=== PATIENT | male | born 2000 | race Caucasian/White ===

== ENCOUNTER 2020-08-31 11:38 | Inpatient (IN) ==
[2020-08-31 12:40] LABS: Appearance Urine Clear (Clear); Bilirubin Urine Negative (Negative); Blood Urine Negative (Negative); Color Urine Yellow; Glucose Urine UA Negative (Negative); Ketones Urine 1+ (Negative); Leukocyte Esterase Urine Negative (Negative); Nitrite Urine Negative (Negative); Protein Urine Negative (Negative); Specific Gravity Urine 1.026 (1.000-1.030); Urobilinogen Urine Negative (Negative); pH Urine 5.5 (4.5-7.5)
[2020-08-31 12:45] LABS: Basophils # (auto) 0.01 K/uL (0-0.2); Basophils % (auto) 0.2 %; Eosinophils # (auto) 0.04 K/uL (0-0.5); Eosinophils % (auto) 0.6 %; Hemoglobin 15.9 g/dL (14.0-18.0); Immature Granulocytes # (auto) 0.03 K/uL (0.00-0.02); Immature Granulocytes % (auto) 0.5 %; Lymphocytes # (auto) 1.62 K/uL (1.2-3.4); Mean Corpuscular Hemoglobin 30.1 pg (25-34); Mean Corpuscular Hgb Conc 34.6 g/dL (32-36); Mean Corpuscular Volume 87.1 fL (80-100); Mean Platelet Volume 10.9 fL (7.4-10.4); Monocytes # (auto) 0.33 K/uL (0.11-0.59); Monocytes % (auto) 5.1 %; Neutrophils # (auto) 4.46 K/uL (1.4-6.5); Neutrophils % (auto) 68.6 %; Platelet Count 275 K/uL (130-400); RDW Coefficient of Variation 13.2 % (11.5-14.5); RDW Standard Deviation 42.3 fL (36.4-46.3); Red Blood Count 5.28 M/uL (4.7-6.1); White Blood Count 6.49 K/uL (4.8-10.8)
--- NOTE | 2020-08-31 12:51 | Emergency Department Note ---
Impression & Plan Alcohol abuse, Marijuana abuse, Mushrooms causing toxic effect, Suicidal ideation, Mood disorder ED Provider Note NAME: AIMEE MARTINI AGE: 20 SEX: M : 2000 ARRIVES VIA: Ambulance INFORMANT: Patient ED PROVIDER(S): Deniz Walters DO CHIEF COMPLAINT: Suicidal thoughts HPI: Patient is a 20-year-old male who admits to suicidal ideations with a plan to shoot himself with a gun. He has had suicidal thoughts since the age of 7. He notes that recently they have been getting worse. Last night he was drinking large amount of alcohol and believes he was had 2 riki 45s and some whiskey and took a bunch of mushrooms as well as smoking some marijuana. Last time he took anything was some around 2-4 AM in the morning. He denies any headache or change in vision. No chest pain or shortness of breath. No nausea, vomiting or diarrhea. No dysuria, urgency or frequency. No other exacerbating or remitting factors. He notes he took all his medications because he is just easier and he does not want to live. ROS: See above HPI for pertinent positives & negatives. A total of 10 systems reviewed and were otherwise negative. PAST MEDICAL HISTORY:See Below PAST SURGICAL HISTORY:See Below FAMILY HISTORY:See Below SOCIAL HISTORY:See Below HOME MEDICATIONS:See Below ALLERGIES:See Below VITALS:See Below PHYSICAL EXAMINATION: GENERAL: Sitting up in bed, alert, well appearing, well nourished, no distress, non-toxic EYE EXAM: normal conjunctiva. OROPHARYNX: no exudate, no erythema, lips, buccal mucosa, and tongue normal and mucous membranes are moist NECK: supple, no nuchal rigidity, no adenopathy, non-tender LUNGS: Clear to auscultation. Normal chest wall mechanics HEART: no murmurs, S1 normal and S2 normal ABDOMEN: abdomen soft, non-tender, normo-active bowel sounds, no masses, no rebound or guarding. BACK: Back is symmetrical on inspection and there is no deformity, no midline tenderness, no CVA tenderness. UPPER EXTREMITIES: upper extremities are grossly normal. LOWER EXTREMITIES: No pitting edema. NEURO EXAM: Normal sensorium, cranial nerves II-XII grossly intact, normal speech, no gross weakness of arms, no gross weakness of legs. PSYCH: Admits to suicidal ideations with a plan to shoot himself MEDICAL DECISION MAKING: Patient is a 21-year-old male who drinks alcohol regularly, uses marijuana and used mushrooms last night into this morning as well. He presents the ER today as he has thoughts of wanting to kill himself with a gun. He has a clear plan. He also feels very weird from them the drugs and alcohol they took last night. He has some twitching intermittently of the upper and lower extremities as well. Labs show no significant leukocytosis or anemia. No thrombocytopenia. BMP with a slightly elevated chloride. LFTs bilirubin and TSH were unremarkable. UA with ketones. Acetaminophen and salicylates were negative. Tox was positive for marijuana. Alcohol was 103. Covid was negative. Discussed with [facility] poison control. They recommended observation for 24 hours secondary to the mushroom ingestion and the possible toxic effects. CT head was negative. EKG was nondiagnostic. Patient was updated bedside discussed with the hospitalist for further evaluation. Triage Nursing notes reviewed. Limited review of prior medical records performed Vital Signs: reviewed and remarkable for no significant abnormalities Differential diagnosis: Mood disorder, infection, hypoglycemia, electrolyte abnormalities, cardiac sour sandra, intracerebral event, toxicologic, trauma, neurologic, as well as other pathologies. ER treatment provided: See below Diagnostics interpreted by me: ECG: Sinus rhythm rate 87 Normal axis No PVCs QTC 421 Laboratory studies: As stated above and show below. Imaging studies: CT head shows no acute pathology Consultation(s): Discussed with Dr. Olea for further evaluation Procedures: none Critical Care: None Past Med/Surg History Medical History (Updated 08/31/20 @ 17:16 by Deniz Walters DO) Alcohol abuse Former tobacco use Marijuana abuse Mood disorder Mushrooms causing toxic effect Surgical History (Updated 08/31/20 @ 16:34 by Rohan Olea) H/O wisdom tooth extraction Family History (Updated 08/31/20 @ 16:35 by Rohan Olea) Grandfather (Paternal) Diabetes Social History (Updated 08/31/20 @ 16:36 by Rohan Olea) Smoking Status: Former smoker Tobacco Type: Cigarettes and E-cigarettes / Vaping Hx Alcohol Use: Yes Alcohol type: beer Alcohol Intake Frequency: 4 or More x per/Week Alcohol Intake Frequency Comment: 80oz/day Hx Substance Use: Yes Prescribed Medications: Marijuana Non-Prescribed Medications: Amphetamines, Hallucinogens and Marijuana Last Used Substance: Just Prior to Arrival marital status: Single Current Living Situation: Other Current Living Situation Comment: 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 Feels Safe at Home: Yes Do you think of yourself as: straight/heterosexual Sexual Activity: has been sexually active within the last 12 months Home Meds Home Medications Medication Instructions Recorded Confirmed No Known Home Medications 08/31/20 08/31/20 Results & Data (ED) Vital Signs Vital Signs - 24 hr 08/31/20 11:41 08/31/20 13:30 Temperature 36.7 C Temperature Source Oral Pulse Rate 95 H Pulse Rate [Finger] 85 Pulse Rhythm Regular Pulse Strength Normal Respiratory Rate 20 18 Respiratory Effort / Characteristics Non-Labored Respiratory Depth Normal Respiratory Pattern Regular Blood Pressure 129/87 Blood Pressure [Left Arm] 126/79 Blood Pressure Mean 101 Blood Pressure Mean [Left Arm] 94 Blood Pressure Position Sitting Pulse Oximetry 98 99 Oxygen Delivery Method Room Air Room Air Sepsis Recent Fever Within 48 Hours No Sepsis New/Unexplained Change in Mental Status No Sepsis Action Taken by Nursing No Action Required Laboratory Data Result diagrams: 08/31/20 12:31 08/31/20 12:31 Lab Results 08/31/20 08/31/20 08/31/20 Range/Units 12:30 12:30 12:31 WBC 6.49 (4.8-10.8) K/uL RBC 5.28 (4.7-6.1) M/uL Hgb 15.9 (14.0-18.0) g/dL Hct 46.0 (42-52) % MCV 87.1 (80-100) fL MCH 30.1 (25-34) pg MCHC 34.6 (32-36) g/dL RDW Std Deviation 42.3 (36.4-46.3) fL RDW Coeff of Haydee 13.2 (11.5-14.5) % Plt Count 275 (130-400) K/uL MPV 10.9 H (7.4-10.4) fL Immature Gran % (Auto) 0.5 % Neut % (Auto) 68.6 % Lymph % (Auto) 25.0 % Graves % (Auto) 5.1 % Eos % (Auto) 0.6 % Baso % (Auto) 0.2 % Neut # (Auto) 4.46 (1.4-6.5) K/uL Lymph # (Auto) 1.62 (1.2-3.4) K/uL Graves # (Auto) 0.33 (0.11-0.59) K/uL Eos # (Auto) 0.04 (0-0.5) K/uL Baso # (Auto) 0.01 (0-0.2) K/uL Immature Gran # (Auto) 0.03 H (0.00-0.02) K/uL Sodium (136-145) mmol/L Potassium (3.5-5.1) mmol/L Chloride (98-107) mmol/L Carbon Dioxide (21-32) mmol/L Anion Gap (3-11) BUN (7-18) mg/dl Creatinine (0.6-1.4) mg/dl Est Cr Clr Drug Dosing ml/min Est GFR ( Amer) Est GFR (Non-Af Amer) BUN/Creatinine Ratio (10-20) Glucose (70-99) mg/dl Calcium (8.5-10.1) mg/dl Total Bilirubin (0.2-1) mg/dl AST (15-37) U/L ALT (12-78) U/L Alkaline Phosphatase (45-117) U/L Total Protein (6.4-8.2) gm/dl Albumin (3.4-5.0) gm/dl Globulin (2.5-4.0) gm/dl Albumin/Globulin Ratio (0.9-2) TSH (0.300-4.500) uIu/ml Urine Color Yellow Urine Appearance Clear (Clear) Urine pH 5.5 (4.5-7.5) Ur Specific [place] 1.026 (1.000-1.030) Urine Protein Negative (Negative) Urine Glucose (UA) Negative (Negative) Urine Ketones 1+ H (Negative) Urine Blood Negative (Negative) Urine Nitrite Negative (Negative) Urine Bilirubin Negative (Negative) Urine Urobilinogen Negative (Negative) Ur Leukocyte Esterase Negative (Negative) Salicylates (2.8-20) mg/dl Urine Opiates Screen Neg (Neg) Ur Methadone, Qual Neg (Neg) Acetaminophen (10-30) ug/ml Urine Barbiturates Neg (Neg) Ur Phencyclidine (PCP) Neg (Neg) U Amphetamin/Meth Scrn Neg (Neg) MDMA (Ecstasy) Screen Neg (Neg) U Benzodiazepines Scrn Neg (Neg) Ur Cocaine Metabolite Neg (Neg) U Marijuana (THC) Screen Pos H (Neg) Ethyl Alcohol mg/dL (0-3) mg/dl COVID-19 Eval Order SARS-CoV-2, RNA, NAAT (NEGATIVE) 08/31/20 08/31/20 08/31/20 Range/Units 12:31 12:31 12:31 WBC (4.8-10.8) K/uL RBC (4.7-6.1) M/uL Hgb (14.0-18.0) g/dL Hct (42-52) % MCV (80-100) fL MCH (25-34) pg MCHC (32-36) g/dL RDW Std Deviation (36.4-46.3) fL RDW Coeff of Haydee (11.5-14.5) % Plt Count (130-400) K/uL MPV (7.4-10.4) fL Immature Gran % (Auto) % Neut % (Auto) % Lymph % (Auto) % Graves % (Auto) % Eos % (Auto) % Baso % (Auto) % Neut # (Auto) (1.4-6.5) K/uL Lymph # (Auto) (1.2-3.4) K/uL Graves # (Auto) (0.11-0.59) K/uL Eos # (Auto) (0-0.5) K/uL Baso # (Auto) (0-0.2) K/uL Immature Gran # (Auto) (0.00-0.02) K/uL Sodium 140 (136-145) mmol/L Potassium 3.7 (3.5-5.1) mmol/L Chloride 111 H (98-107) mmol/L Carbon Dioxide 21 (21-32) mmol/L Anion Gap 8.0 (3-11) BUN 14 (7-18) mg/dl Creatinine 1.02 (0.6-1.4) mg/dl Est Cr Clr Drug Dosing 95.8 ml/min Est GFR ( Amer) 121.2 Est GFR (Non-Af Amer) 104.6 BUN/Creatinine Ratio 13.6 (10-20) Glucose 100 H (70-99) mg/dl Calcium 9.1 (8.5-10.1) mg/dl Total Bilirubin 0.3 (0.2-1) mg/dl AST 34 (15-37) U/L ALT 47 (12-78) U/L Alkaline Phosphatase 82 (45-117) U/L Total Protein 9.2 H (6.4-8.2) gm/dl Albumin 4.7 (3.4-5.0) gm/dl Globulin 4.5 H (2.5-4.0) gm/dl Albumin/Globulin Ratio 1.0 (0.9-2) TSH 0.974 (0.300-4.500) uIu/ml Urine Color Urine Appearance (Clear) Urine pH (4.5-7.5) Ur Specific [place] (1.000-1.030) Urine Protein (Negative) Urine Glucose (UA) (Negative) Urine Ketones (Negative) Urine Blood (Negative) Urine Nitrite (Negative) Urine Bilirubin (Negative) Urine Urobilinogen (Negative) Ur Leukocyte Esterase (Negative) Salicylates < 1.7 L (2.8-20) mg/dl Urine Opiates Screen (Neg) Ur Methadone, Qual (Neg) Acetaminophen < 2 L (10-30) ug/ml Urine Barbiturates (Neg) Ur Phencyclidine (PCP) (Neg) U Amphetamin/Meth Scrn (Neg) MDMA (Ecstasy) Screen (Neg) U Benzodiazepines Scrn (Neg) Ur Cocaine Metabolite (Neg) U Marijuana (THC) Screen (Neg) Ethyl Alcohol mg/dL 103.0 H (0-3) mg/dl COVID-19 Eval Order SARS-CoV-2, RNA, NAAT (NEGATIVE) 08/31/20 08/31/20 Range/Units 15:17 15:17 WBC (4.8-10.8) K/uL RBC (4.7-6.1) M/uL Hgb (14.0-18.0) g/dL Hct (42-52) % MCV (80-100) fL MCH (25-34) pg MCHC (32-36) g/dL RDW Std Deviation (36.4-46.3) fL RDW Coeff of Haydee (11.5-14.5) % Plt Count (130-400) K/uL MPV (7.4-10.4) fL Immature Gran % (Auto) % Neut % (Auto) % Lymph % (Auto) % Graves % (Auto) % Eos % (Auto) % Baso % (Auto) % Neut # (Auto) (1.4-6.5) K/uL Lymph # (Auto) (1.2-3.4) K/uL Graves # (Auto) (0.11-0.59) K/uL Eos # (Auto) (0-0.5) K/uL Baso # (Auto) (0-0.2) K/uL Immature Gran # (Auto) (0.00-0.02) K/uL Sodium (136-145) mmol/L Potassium (3.5-5.1) mmol/L Chloride (98-107) mmol/L Carbon Dioxide (21-32) mmol/L Anion Gap (3-11) BUN (7-18) mg/dl Creatinine (0.6-1.4) mg/dl Est Cr Clr Drug Dosing ml/min Est GFR ( Amer) Est GFR (Non-Af Amer) BUN/Creatinine Ratio (10-20) Glucose (70-99) mg/dl Calcium (8.5-10.1) mg/dl Total Bilirubin (0.2-1) mg/dl AST (15-37) U/L ALT (12-78) U/L Alkaline Phosphatase (45-117) U/L Total Protein (6.4-8.2) gm/dl Albumin (3.4-5.0) gm/dl Globulin (2.5-4.0) gm/dl Albumin/Globulin Ratio (0.9-2) TSH (0.300-4.500) uIu/ml Urine Color Urine Appearance (Clear) Urine pH (4.5-7.5) Ur Specific [place] (1.000-1.030) Urine Protein (Negative) Urine Glucose (UA) (Negative) Urine Ketones (Negative) Urine Blood (Negative) Urine Nitrite (Negative) Urine Bilirubin (Negative) Urine Urobilinogen (Negative) Ur Leukocyte Esterase (Negative) Salicylates (2.8-20) mg/dl Urine Opiates Screen (Neg) Ur Methadone, Qual (Neg) Acetaminophen (10-30) ug/ml Urine Barbiturates (Neg) Ur Phencyclidine (PCP) (Neg) U Amphetamin/Meth Scrn (Neg) MDMA (Ecstasy) Screen (Neg) U Benzodiazepines Scrn (Neg) Ur Cocaine Metabolite (Neg) U Marijuana (THC) Screen (Neg) Ethyl Alcohol mg/dL (0-3) mg/dl COVID-19 Eval [facility] SARS-[facility]-2, RNA, NAAT NEGATIVE (NEGATIVE) Administered Medications Discontinued Medications Lorazepam (Lorazepam 1 Mg Tab) 1 mg SL NOW STA Stop: 08/31/20 15:09 Last Admin: 08/31/20 15:26 Dose: 1 mg Documented by: [id number] Discharge Plan Visit Data Chief Complaint: Overdose (Intentional) Stated Complaint: Mushrooms ED Provider: Deniz Walters Discharge Problem: Alcohol abuse, Marijuana abuse, Mushrooms causing toxic effect, Suicidal ideation, Mood disorder Forms Stand Alone Forms: [facility], Suicide Prevention Resources Prescriptions Prescriptions: No Action No Known Home Medications RF: 0 Referrals Referrals: PCP,NO [Primary Care Provider] - Discharge Problem: Mushrooms causing toxic effect Qualifiers: Encounter type: initial encounter Injury intent: undetermined intent Qualified Code(s): T62.0X4A - Toxic effect of ingested mushrooms, undetermined, initial encounter
[2020-08-31 13:01] LABS: Albumin Level 4.7 gm/dl (3.4-5.0); BUN Creatinine Ratio 13.6 (10-20); Calcium 9.1 mg/dl (8.5-10.1); Creatinine Clr Calc Pharmacy 95.8 ml/min; Est GFR (African American) 121.2; Est GFR (Non-African American) 104.6; Potassium 3.7 mmol/L (3.5-5.1)
[2020-08-31 13:03] LABS: Amphetamines+Metham, Urine Neg (Neg); Barbiturates, Urine Neg (Neg); Benzodiazepine, Urine Neg (Neg); Cocaine, Urine Neg (Neg); MDMA (Ecstacy), Urine Neg (Neg); Methadone, Urine Neg (Neg); Opiate, Urine Neg (Neg); Phencyclidine, Urine Neg (Neg)
[2020-08-31 13:12] LABS: Bilirubin,Total 0.3 mg/dl (0.2-1); Globulin 4.5 gm/dl (2.5-4.0); Thyroid Stimulating Hormone 0.974 uIu/ml (0.300-4.500); Total Protein 9.2 gm/dl (6.4-8.2)
--- NOTE | 2020-08-31 13:23 | Electrocardiogram Report ---
Test Reason : Blood Pressure : / mmHG Vent. Rate : 087 BPM Atrial Rate : 087 BPM P-R Int : 144 ms QRS Dur : 090 ms QT Int : 350 ms P-R-T Axes : 078 087 024 degrees QTc Int : 421 ms Normal sinus rhythm with sinus arrhythmia Normal ECG No previous ECGs available Confirmed by Satinder Jose ([id number]) on 08/31/2020 1:23:44 PM Referred By: Confirmed By:Satinder Jose
[2020-08-31 13:50] LABS: Acetaminophen < 2 ug/ml (10-30); Salicylate < 1.7 mg/dl (2.8-20)
[2020-08-31] MEDS ORDERED: LORazepam 1 MG TAB SL STA (15:08)
--- NOTE | 2020-08-31 15:21 | History & Physical Report ---
Date of Service August 31, 2020 Assessment & Plan (1) Suicidal ideation: Patient has had long-standing depression/mood disorder - some of which may be substance-induced (etoh, etc). He has frequent thoughts of dying. He apparently told ER staff/attending that he would use a gun to kill himself. Psychiatric consultation requested. One-to-one / suicide precautions. (2) Mood disorder: Longstanding, but has never had treatment either medicinally or by way of therapy/counseling. Now with suicidal ideation and polysubstance abuse. Latter could be contributing heavily to his moods. Psych consult. One-to-one / suicide precautions. TSH noted to be normal. (3) Alcohol abuse: Severe. 40-80oz of beer/day on regular basis. No h/o withdrawal but at risk of such. Thiamine/folic acid/MVI. Etoh withdrawal protocol. Telemetry. Check B12 in am. Needs intensive therapy for this issue. (4) Former tobacco use: Patient reports quitting in the past. But [id number] he is misusing other substances and smoking THC. (5) Marijuana abuse: Ongoing, active, regular use. 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 (6) Mushrooms causing toxic effect: Pt openly admits to mushroom usage in the last 24 hours. Quantity uncertain. Supportive care. Ativan prn for agitation or other symptoms. (7) Elevated total protein: Will need this repeated as an outpatient. likely reactive. (8) Myoclonic jerking: I am uncertain if this is involuntary vs voluntary; suspect latter however. Monitor. Ativan prn. History of Present Illness Chief Complaint: suicidal ideation Primary Care Provider: NO PCP 20yo male with h/o heavy alcohol use - up to 80oz/day - along with frequent THC use. He presents with suicidal ideation and "feeling depressed for a long time". This is in the setting of drinking heavily last evening, smoking marijuana, and using mushrooms. He would not tell me where he gets his THC and mushrooms from nor how many mushrooms were consumed. He has used the latter in the past but was vague but how frequently he has used hallucinogenic mushrooms. He admitted to using adderall in the past illicitly and has tried cocaine on one occasion only. He admitted to thoughts of dying along with suicidal ideation over a long period of time but again was vague with how he would hurt himself. He apparently told the ER attending he would harm himself with a gun but he denied this to me. He has never taken anti-depressants. He does not see a counselor. He was hospitalized in a mental health unit when he was age 15 for saying something inappropriate to a young female. After involuntary commitment he was sent to another facility but I had a difficult time understanding what that facility was. Denies h/o bipolar d/o. When asked about his mother/father he again was vague and said "they have had difficult lives" but denies a specific mental health disorder. During the visit he was having voluntary vs involuntary myoclonic/body-wide jerks. No tremor. He denies chronic psychosis. He did, however, hear an "unnatural" sound earlier in his ED visit - now resolved. Allergies Allergy/AdvReac Type Severity Reaction Status Date / Time No Known Allergies Allergy Verified 08/31/20 20:36 Home Medications Medication Instructions Recorded Confirmed Type No Known Home Medications 08/31/20 08/31/20 History Past Med/Surg History Medical History (Updated 08/31/20 @ 21:33 by Rohan Olea) Alcohol abuse Former tobacco use Marijuana abuse Mood disorder Mushrooms causing toxic effect Surgical History (Updated 08/31/20 @ 16:34 by Rohan Olea) H/O wisdom tooth extraction Family History (Updated 08/31/20 @ 16:35 by Rohan Olea) Grandfather (Paternal) Diabetes Social History (Updated 08/31/20 @ 16:36 by Rohan Olea) Smoking Status: Current every day smoker Tobacco Type: Cigarettes and E-cigarettes / Vaping Hx Alcohol Use: Yes Alcohol type: beer Alcohol Intake Frequency: 4 or More x per/Week Alcohol Intake Frequency Comment: 80oz/day Hx Substance Use: Yes Prescribed Medications: Marijuana Non-Prescribed Medications: Amphetamines, Hallucinogens and Marijuana Last Used Substance: Just Prior to Arrival Preferred Language: Peruvian Communication Ability: Effective Material Control Clerk Required: No Beliefs That Will Affect Care: None marital status: Single Current Living Situation: Other Current Living Situation Comment: 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 Feels Safe at Home: Yes Safety Concerns: Feels Safe At This Time Do you think of yourself as: straight/heterosexual Sexual Activity: has been sexually active within the last 12 months Assistive Devices: None Review of Systems Constitutional: no fever, no chills and no anorexia Eyes: no worsening vision Ear, Nose, Mouth, Throat: + nasal discharge; no sore throat denies loss of taste or smell Respiratory: no cough and no dyspnea Cardiovascular: no chest pain Gastrointestinal: + diarrhea/loose stools; no abdominal pain and no vomiting Genitourinary: no dysuria and no penile discharge Musculoskeletal: no joint pain Integumentary: no rash Neurologic: + confusion; no headache(s) Psychiatric: + depression, + abnormal sleep pattern, + suicidal ideation, + paranoia, + auditory hallucinations and + substance abuse; no visual hallucinations Endocrine: denies diabetes Hematologic / Lymphatic: no easy bleeding and no easy bruising Physical Exam Constitutional: + thin and cooperative; no acute distress body-wide myoclonic type jerking; uncertain if involuntary vs voluntary Eyes: PERRL and + nystagmus (horizontal ) ENMT: external ear and nose normal, oropharynx normal Neck: trachea midline, no thyromegaly Respiratory: normal respiratory effort, lungs clear to auscultation Cardiovascular: Rate/Rhythm: regular rate and regular rhythm Heart Sounds: normal S1 and normal S2; no murmur Vessels: posterior tibial pulses present and dorsalis pedis pulses present; no JVD Extremities: no edema Gastrointestinal (Abdomen): normal bowel sounds, soft, nontender, no hepatosplenomegaly Musculoskeletal: no cyanosis or clubbing, extremities motor strength 5/5 Skin: no rashes, warm and dry Neurologic: deep tendon reflexes 2+ bilaterally and moves all extremities; no focal motor deficits Psychiatric: Orientation: alert, oriented to person, oriented to place and oriented to time Speech: no pressured speech Thought Process: + tangential thought process Lymphatic: no cervical lymphadenopathy Results & Data Results & Data ([facility]) Vital Signs (Past 12 Hours) Vital Signs Temp Pulse Resp BP Pulse Ox 08/31/20 11:41 36.7 C 95 H 20 129/87 98 Laboratory Results Laboratory Results - last 24 hr 08/31/20 08/31/20 08/31/20 12:30 12:30 12:30 WBC RBC Hgb Hct MCV MCH MCHC RDW Std Deviation RDW Coeff of Haydee Plt Count MPV Immature Gran % (Auto) Neut % (Auto) Lymph % (Auto) Dare % (Auto) Eos % (Auto) Baso % (Auto) Neut # (Auto) Lymph # (Auto) Dare # (Auto) Eos # (Auto) Baso # (Auto) Immature Gran # (Auto) Sodium Potassium Chloride Carbon Dioxide Anion Gap BUN Creatinine Est Cr Clr Drug Dosing Est GFR ( Amer) Est GFR (Non-Af Amer) BUN/Creatinine Ratio Glucose Calcium Total Bilirubin AST ALT Alkaline Phosphatase Total Protein Albumin Globulin Albumin/Globulin Ratio TSH Urine Color Yellow Urine Appearance Clear Urine pH 5.5 Ur Specific [place] 1.026 Urine Protein Negative Urine Glucose (UA) Negative Urine Ketones 1+ H Urine Blood Negative Urine Nitrite Negative Urine Bilirubin Negative Urine Urobilinogen Negative Ur Leukocyte Esterase Negative Salicylates Urine Opiates Screen Neg Ur Methadone, Qual Neg Acetaminophen Urine Barbiturates Neg Ur Phencyclidine (PCP) Neg U Amphetamin/Meth Scrn Neg MDMA (Ecstasy) Screen Neg U Benzodiazepines Scrn Neg Ur Cocaine Metabolite Neg U Marijuana (THC) Screen Pos H U Marijuana THC Carboxy Pending Drug Screen Comment Pending Ethyl Alcohol mg/dL COVID-19 Eval Order SARS-CoV-2, RNA, NAAT 08/31/20 08/31/20 08/31/20 12:31 12:31 12:31 WBC 6.49 RBC 5.28 Hgb 15.9 Hct 46.0 MCV 87.1 MCH 30.1 MCHC 34.6 RDW Std Deviation 42.3 RDW Coeff of Haydee 13.2 Plt Count 275 MPV 10.9 H Immature Gran % (Auto) 0.5 Neut % (Auto) 68.6 Lymph % (Auto) 25.0 Dare % (Auto) 5.1 Eos % (Auto) 0.6 Baso % (Auto) 0.2 Neut # (Auto) 4.46 Lymph # (Auto) 1.62 Dare # (Auto) 0.33 Eos # (Auto) 0.04 Baso # (Auto) 0.01 Immature Gran # (Auto) 0.03 H Sodium 140 Potassium 3.7 Chloride 111 H Carbon Dioxide 21 Anion Gap 8.0 BUN 14 Creatinine 1.02 Est Cr Clr Drug Dosing 95.8 Est GFR ( Amer) 121.2 Est GFR (Non-Af Amer) 104.6 BUN/Creatinine Ratio 13.6 Glucose 100 H Calcium 9.1 Total Bilirubin 0.3 AST 34 ALT 47 Alkaline Phosphatase 82 Total Protein 9.2 H Albumin 4.7 Globulin 4.5 H Albumin/Globulin Ratio 1.0 TSH 0.974 Urine Color Urine Appearance Urine pH Ur Specific [place] Urine Protein Urine Glucose (UA) Urine Ketones Urine Blood Urine Nitrite Urine Bilirubin Urine Urobilinogen Ur Leukocyte Esterase Salicylates < 1.7 L Urine Opiates Screen Ur Methadone, Qual Acetaminophen < 2 L Urine Barbiturates Ur Phencyclidine (PCP) U Amphetamin/Meth Scrn MDMA (Ecstasy) Screen U Benzodiazepines Scrn Ur Cocaine Metabolite U Marijuana (THC) Screen U Marijuana THC Carboxy Drug Screen Comment Ethyl Alcohol mg/dL COVID-19 Eval Order SARS-CoV-2, RNA, NAAT 08/31/20 08/31/20 08/31/20 12:31 15:17 15:17 WBC RBC Hgb Hct MCV MCH MCHC RDW Std Deviation RDW Coeff of Haydee Plt Count MPV Immature Gran % (Auto) Neut % (Auto) Lymph % (Auto) Dare % (Auto) Eos % (Auto) Baso % (Auto) Neut # (Auto) Lymph # (Auto) Dare # (Auto) Eos # (Auto) Baso # (Auto) Immature Gran # (Auto) Sodium Potassium Chloride Carbon Dioxide Anion Gap BUN Creatinine Est Cr Clr Drug Dosing Est GFR ( Amer) Est GFR (Non-Af Amer) BUN/Creatinine Ratio Glucose Calcium Total Bilirubin AST ALT Alkaline Phosphatase Total Protein Albumin Globulin Albumin/Globulin Ratio TSH Urine Color Urine Appearance Urine pH Ur Specific [place] Urine Protein Urine Glucose (UA) Urine Ketones Urine Blood Urine Nitrite Urine Bilirubin Urine Urobilinogen Ur Leukocyte Esterase Salicylates Urine Opiates Screen Ur Methadone, Qual Acetaminophen Urine Barbiturates Ur Phencyclidine (PCP) U Amphetamin/Meth Scrn MDMA (Ecstasy) Screen U Benzodiazepines Scrn Ur Cocaine Metabolite U Marijuana (THC) Screen U Marijuana THC Carboxy Drug Screen Comment Ethyl Alcohol mg/dL 103.0 H COVID-19 Eval [facility] SARS-CoV-2, RNA, NAAT NEGATIVE Diagnostic Findings CT head - negative for ICH, stroke, etc. EKG - NSR, large R wave leads V1/V2, early repolarization, no ST changes. Findings likely normal for thin, young male. Code Status & VTE Plan Code Status full PG Care Time/CCT Total # of Minutes Spent Total Time Spent with Patient: Total time spent is greater than 50% in coordination of care (as documented) at patient's floor/unit and/or counseling patient: Coding Level of Care Code 14933 Initial Inpt Care Lvl 2 Diagnoses Suicidal ideation R45.851 Mood disorder F39 Alcohol abuse F10.10 Former tobacco use Z87.891 Marijuana abuse F12.10 Mushrooms causing toxic effect T62.0X2A Encounter type: initial encounter Injury intent: intentional self-harm Elevated total protein R77.8 Myoclonic jerking G25.3 (1) Mushrooms causing toxic effect Encounter type: initial encounter Injury intent: intentional self-harm Qualified Code(s): T62.0X2A - Toxic effect of ingested mushrooms, intentional self-harm, initial encounter
--- NOTE | 2020-08-31 15:48 | CT Scan Report ---
CT head/brain wo con CLINICAL HISTORY: twitching SUICIDAL IDEATIONS. COMPARISON STUDY: No previous studies for comparison. TECHNIQUE: Axial CT of the brain is performed from the vertex to the skull base. IV contrast was not administered for this examination. A dose lowering technique was utilized adhering to the principles of ALARA. CT DOSE: 537.48 mGy.cm FINDINGS: No intra or extra-axial mass lesions are visualized. There is no CT evidence of acute cortical infarc tion. There is no evidence of midline shift. There is no acute hemorrhage. No calvarial fractures ar e visualized. There is no evidence of pathologic ventricular dilatation. There is no evidence of acute sinusitis IMPRESSION: Normal noncontrast head CT. ACT 112: Negative or not required by law. Electronically signed by: John Little M.D. 08/31/2020 3:47 PM
[2020-08-31] MEDS ORDERED: SALINE LOCK FLUSH IV SCH (18:00)
[2020-08-31] MEDS ORDERED: ONDANSETRON INJ 2 MG/ML 2 ML VIAL IV PRN (20:20)
[2020-08-31] MEDS ORDERED: LORazepam 1 MG/2 ML VIAL IV PRN (20:20)
[2020-08-31] MEDS ORDERED: ACETAMINOPHEN 325 MG TAB PO PRN (20:20)
[2020-08-31] MEDS ORDERED: LORazepam 1 MG TAB PO PRN (20:20)
[2020-08-31] MEDS: THIAMINE HCL 200 MG in SODIUM CHLORIDE 0.9% 50 ML IV SCH (21:31)
[2020-08-31] MEDS: CEROVITE ADV FORMULA TAB PO SCH (21:31)
[2020-08-31] MEDS: FAMOTIDINE 20 MG in SYRINGE 3 ML IV SCH (21:31)
[2020-08-31] MEDS: FOLIC ACID 1 MG in SYRINGE 9.8 ML IV SCH (21:31)
[2020-08-31] MEDS: D5NSS + 20MEQ KCL 20 MEQ/1,000 ML BAG IV SCH (21:32)
[2020-09-01 07:57] LABS: BUN Creatinine Ratio 15.5 (10-20); Creatinine Clr Calc Pharmacy 102.1 ml/min; Est GFR (African American) 139.1; Potassium 4.3 mmol/L (3.5-5.1)
[2020-09-01] MEDS: D5NSS + 20MEQ KCL 20 MEQ/1,000 ML BAG IV SCH ×2 (08:29→18:50)
[2020-09-01] MEDS: CEROVITE ADV FORMULA TAB PO SCH (08:30)
[2020-09-01] MEDS: FOLIC ACID 1 MG in SYRINGE 9.8 ML IV SCH (08:30)
[2020-09-01] MEDS: FAMOTIDINE 20 MG in SYRINGE 3 ML IV SCH ×2 (08:41→21:35)
[2020-09-01] MEDS: THIAMINE HCL 200 MG in SODIUM CHLORIDE 0.9% 50 ML IV SCH ×3 (08:42→22:24)
--- NOTE | 2020-09-01 12:40 | Psychiatric Consultation ---
Date of Consultation September 01, 2020 Impression / Recommendations Impression 20-year-old gentleman who clearly appears to be struggling with some chronic mood and anxiety symptoms suggestive of major depressive episode and generalized anxiety disorder with features of social phobia. This occurs in the setting of polysubstance abuse; as such it is impossible to appreciate if mood and anxiety symptomatology is primary or secondary to substance abuse. Last evening he presented expressing suicidal ideation while intoxicated. Today he admits to chronic intermittent passive suicidal ideation but repeatedly has denied intent or plan for self-harm presently. He would benefit from engagement in mental health services as well as substance abuse counseling. He was offered and declined inpatient psychiatric hospitalization today following medical clearance but did ultimately agree to consider. While I would prefer the patient to have a period of monitoring and ideally engage him therapeutically from a mental health perspective prior to discharge, he appeared angry and retreating when I was discussing the unit with him and he expressed feeling highly uncomfortable with having to share his experiences and to listen to the experiences of other psychiatric patients. In considering his history of a desire to engage in mental health treatment but has been reluctant, I fear that pursuing a 302 commitment for inpatient psychiatric hospitalization presently may be counter therapeutic and pushed him further away from therapeutic engagement. As patient continues to demonstrate diffuse myoclonic jerks which appear likely a symptom of psilocybin intoxication, it would be helpful if he could remain on the medical floor until tomorrow when we can reassess and give him another opportunity to consider inpatient admission. At a minimum, on Wednesday we will be able to help facilitate outpatient psychiatric and substance abuse follow-up which we are unable to do effectively on a Wednesday. (1) Mood disorder: 09/01 -Primary intervention substance abuse cessation -Patient describes persistent mood symptoms for at least 2 years. May benefit from antidepressant pharmacotherapy however not appropriate time to initiate in setting of resolving polysubstance intoxication -As above, inpatient psychiatric hospitalization recommended and declined by patient today. Hopefully we can reapproach this possibility tomorrow however if he continues to decline and there is absence of evidence of imminent risk, establishing outpatient follow-up with safety planning may be appropriate (2) Suicidal ideation: 09/01 -He has consistently denied active suicidal ideation, intent, or feasible plan since medical admission from the ER -Psychedelic mushroom ingestion occurred in the setting of intoxication however with overlay of chronic passive suicidal ideation. He was advised to abstain from MUD MIXER altering recreational substances which may reduce impulse control and impact decision-making -continue sitter overnight -We will try to expand database as able (3) Anxiety disorder: 09/01 -While this may be substance related as well, he does describe a longstanding tendency to worry and social anxiety and may benefit from serotonin based antidepressant pharmacotherapy as well as cognitive behavioral therapy -While his myoclonic jerks appear likely a symptom of suicide and injection, there did seem to be a psychogenic component as motor jerks increased when discussing emotionally provocative content (4) Alcohol abuse: 09/01 -Abstinence encouraged -Recommend outpatient substance abuse counseling as above -Vitals encouraging. Not triggering AWSS. Has Ativan prn if needed (5) Marijuana abuse: (6) Mushrooms causing toxic effect: Encounter type: initial encounter Injury intent: intentional self-harm Qualified Code(s): T62.0X2A - Toxic effect of ingested mushrooms, intentional self-harm, initial encounter Risk Factors Assessment Do You Have Access To A Gun?: No Psych History Chief Complaint "I've been depressed for a long time". History of Present Illness Patient is known formalized psychiatric history. Presented through the ER on 08/31/2020 with polysubstance intoxication and made comments that he would shoot himself with a gun if he had one. In the ER he indicated that he has been having suicidal ideation since the age of 7 and felt they have been getting worse. He reported consumption of 2 "45's, unquantified amount of whiskey, and psychedelic mushroom ingestion as well as marijuana on night of arrival. Last ingestion occurred between 2 and 4 AM. In the ER he stated he took the ingestio n because he does not want to live. Medical work-up was fairly benign. Tox panel positive for marijuana. Alcohol level 3. COVID negative. Poison control contacted recommended 24-hour observation secondary to psychedelic mushroom ingestion. Head CT negative. Admission H&P indicates self-report is up to 80 ounces of alcohol use daily with frequent THC use. At that time he was vague regarding self-report of recreational drug use and alcohol use. In addition to the mushrooms he admitted to Adderall abuse and cocaine abuse. Denied prior treatment on antidepressant pharmacotherapy. He indicated hospitalization on a mental health unit at age 15 reportedly for some sort of inappropriate conduct however the details of that hospitalization are unclear. Indicated that his parents have had difficult lives. In his interaction with the psychiatric liaison practitioner, patient again indicated longstanding depression and frequently experiencing passive thoughts of life not being worth living and has fantasized of shooting himself however he denies access to firearms and has no plan to obtain a firearm. He denied feeling suicidal presently and further described passive suicidal fantasy as never lasting longer than an hour. He endorsed some anxiety but otherwise denied pertinent symptoms on neurovegetative profile denied history of psychosis or symptoms consistent with bipolar di sorder. On interview this afternoon he reports that he frequently uses recreational substances on the weekends. He believes he began drinking and using mushrooms recreationally but at some point in the process felt compelled to take more of the mushrooms that he intended initially. He is unable to clearly state if he took the quantity of mushrooms that he did to kill himself. He does believe it may have been some form of self-harm attempt but goes on to state that he sought help from his friends and is glad that he sought help and presently is denying any active intent or plan for self-harm. He describes longstanding intermittent passive thoughts of life not being worth living and some suicidal fantasy such as shooting himself with a gun but denies any history of acts of furtherance regarding these impulses. He believes he last felt well around 2019. 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 He describes a history of some social anxiety and would commonly feel judged by others however he indicates that this seems to be improving with age and experience. He describes a long history of excessive worry symptoms associated with insomnia. He describes it ruminate when wor rying. Denies a history of spontaneous panic attacks in the past but has experienced panic associated with marijuana abuse. He reports chronically irregular sleep patterns but does not describe a history of clear mood cycles or periods of time of diminished need for sleep admixed with increased energy or expansive mood states in the absence of substance abuse. Indicates that he has considered engaging in mental health treatment in the past but has always failed to follow-up. He is resistant to considering inpatient psychiatric hospitalization following medical clearance. Past Psychiatric History Previous Psych History: Patient denies any formal prior psychiatric diagnosis or treatment Current Psychiatric Diagnosis: none Outpatient Services: none Previous Psych Admissions: denies on interview today. per record, may have had some for of admission at age 17 Do You Have Access To A Gun?: No History of Previous Suicide Attempt: No Past Medication Trials: none Allergies Allergy/AdvReac Type Severity Reaction Status Date / Time No Known Allergies Allergy Verified 08/31/20 20:36 Home Medications Medication Instructions Recorded Confirmed Type No Known Home Medications 08/31/20 08/31/20 History Family History Reports a family history of alcohol abuse in parents, grandmother, grandfather. There is a history of attempted suicide in the family in a stepbrother and sister Substance Abuse History Fairly extensive substance abuse history. Alcohol 4+ days per week approxi mately 80 ounces of beer. Illicit drug use includes marijuana occasionally, various hallucinogenics such as acid occasionally when available. Reports experimentation with cocaine x1 and Adderall abuse x3. Only 1 prior ingestion of psychedelic mushrooms. Personal History Living Arrangements: Apartment (Rented home) Living Arrangements Comments: Has roommate. 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[employer]) Marital Status: Single Beliefs That Will Affect Care: None History of Legal Problems: denies Psychological Trauma History Comment: "I don't know" Patient History Medical History (Updated 09/01/20 @ 14:53 by Thor López MD) Alcohol abuse Former tobacco use Marijuana abuse Mood disorder Mushrooms causing toxic effect Stimulant abuse Surgical History H/O wisdom tooth extraction Family History Grandfather (Paternal) Diabetes Social History Smoking Status: Current every day smoker Tobacco Type: Cigarettes and E-cigarettes / Vaping Hx Alcohol Use: Yes Alcohol type: beer Alcohol Intake Frequency: 4 or More x per/Week Alcohol Intake Frequency Comment: 80oz/day Hx Substance Use: Yes Prescribed Medications: Marijuana Non-Prescribed Medications: Amphetamines, Hallucinogens and Marijuana Last Used Substance: Just Prior to Arrival Preferred Language: Frisian Communication Ability: Effective Contract Programmer Required: No Beliefs That Will Affect Care: None marital status: Single Current Living Situation: Other Current Living Situation Comment: 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 Feels Safe at Home: Yes Safety Concerns: Feels Safe At This Time Do you think of yourself as: straight/heterosexual Sexual Activity: has been sexually active within the last 12 months Assistive Devices: None Physical Exam Psychiatric: Orientation: alert and oriented x 3 Apperance: + disheveled Eye Contact: good eye contact Motor Behavior: + abnormal motor movements (large motor tics) Speech: normal rate/rhythm/volume of speech; no pressured speech Affect: + depressed affect Mood: + depressed mood and + anxious mood Thought Process: goal directed thought process and clear/coherent thought process Thought Content: reality based without delusions Suicidal Thoughts: denies suicidal thoughts (denies active as per HPI. ), denies suicidal plan and denies suicidal intent Homicidal Thoughts: denies homicidal thoughts Hallucinations: no auditory hallucinations and no visual hallucinations Cognition: recent memory grossly intact (mildly imparied for time of intoxication last night), remote memory grossly intact and language grossly intact Estimated Intelligence: consistent with education level Insight: + fair insight Judgement: + fair judgement Vital Signs (Past 24 Hours): Last Vital Signs Temp 36.6 C 09/01/20 07:00 Pulse 61 09/01/20 07:12 Resp 16 09/01/20 07:00 BP 120/73 09/01/20 07:00 Pulse Ox 98 09/01/20 07:00 Review of Systems Constitutional: no fever Cardiovascular: no chest pain Gastrointestinal: no abdominal pain muscle jerks Neurologic: no confusion Psychiatric: no anhedonia, no suicidal ideation (denies active intent or plan but reports chronic passive thoughts), no homicidal ideation and no hallucinations Results & Data (PSY) Laboratory Results Abnormal lab results 09/01/20 Range/Units 06:53 Chloride 110 H (98-107) mmol/L Diagnostic Findings Head CT 08/04/2020: No acute process Medications Administered Potassium Chloride/Dextrose/Sod Cl (D5nss + 20meq Kcl) 20 meq in 1,000 mls @ 100 mls/hr IV .Q10H [facility] Stop: 09/30/20 20:59 Last Admin: 09/01/20 08:29 Dose: 100 mls/hr Documented by: [id number] Infusion: 09/01/20 08:29 Dose: 0 mls/hr Documented by: [id number] Admin: 08/31/20 21:32 Dose: 100 mls/hr Documented by: [id number] Thiamine HCl 200 mg/ Sodium (Chloride) 52 mls @ 208 mls/hr IV BID [facility] Stop: 09/30/20 20:59 Last Infusion: 09/01/20 10:11 Dose: 0 mls/hr Documented by: [id number] Admin: 09/01/20 08:42 Dose: 52 mls/hr Documented by: [id number] Infusion: 08/31/20 21:50 Dose: 0 mls/hr Documented by: [id number] Admin: 08/31/20 21:31 Dose: 208 mls/hr Documented by: [id number] Folic Acid 1 mg/ Syringe 10 mls @ 5 mls/min IV QAM [facility] Stop: 09/30/20 20:59 Last Admin: 09/01/20 08:30 Dose: 5 mls/min Documented by: [id number] Admin: 08/31/20 21:31 Dose: 5 mls/min Documented by: [id number] Famotidine 20 mg/ Syringe 5 mls @ 2.5 mls/min IV BID [facility] Stop: 09/30/20 20:59 Last Admin: 09/01/20 08:41 Dose: 2.5 mls/min Documented by: [id number] Admin: 08/31/20 21:31 Dose: 2.5 mls/min Documented by: [id number] Multivitamins/Minerals (Cerovite Adv Formula Tab) 1 tab PO QAM [facility] Stop: 09/30/20 20:19 Last Admin: 09/01/20 08:30 Dose: 1 tab Documented by: [id number] Admin: 08/31/20 21:31 Dose: 1 tab Documented by: [id number] Coding Level of Care Code 88110 [facility] Intl Hosp Care Lvl 2 Diagnoses Mood disorder F39 Suicidal ideation R45.851 Anxiety disorder F41.9 Alcohol abuse F10.10 Marijuana abuse F12.10 Mushrooms causing toxic effect T62.0X2A Encounter type: initial encounter Injury intent: intentional self-harm Time Spent (min) 60
--- NOTE | 2020-09-01 13:14 | Hospitalist Progress Note ---
Date of Service September 01, 2020 Assessment & Plan (1) Suicidal ideation: Jamar Santa is a 20 yo male with h/o severe alcohol use disorder (80 ounces of beer per day) and marijuana use who was admitted to [facility] on 08/31/2020 for suicidal ideation in the setting of recent alcohol, marijuana and mushroom use. Suicidal Ideation - h/o depression and passive SI that preceded substance use, apparently told ER staff/attending that he would use a gun to kill himself, no previous attempts, CBC/TSH WNL - suspect underlying depression vs other mood disorder - difficult to diagnosis given extensive alcohol abuse - Psych consulted - pending recs - continue 1-to-1 suicide precautions Alcohol Use Disorder, Severe - 80oz beer per day for at least several months, BAL 103, no h/o withdrawal but at high risk for this - continue Thiamine/Folic acid/MVI - continue IV Pepcid - AWSS protocol with Ativan - Psych consulted as above Mushroom Intoxication - reports ingestion every several months, experienced visual hallucinations during most recent ingestion - no current hallucinations - suspect involuntary jerks/tics are 2/2 mushroom intoxication - continue to monitor clinically for improvement in jerks/tics - trend CMP in AM Elevated Total Protein - likely reactive, repeat as outpatient FEN/GI: Regular DVT Prophylaxis: not indicated Code Status: Full code Disposition: med/surg with tele (2) Mood disorder: (3) Alcohol abuse: (4) Former tobacco use: (5) Marijuana abuse: (6) Mushrooms causing toxic effect: (7) Elevated total protein: (8) Myoclonic jerking: Admission and Anticipated Discharge Date Admission Date: August 31, 2020 Supervising Physician Co-Signing Physician Notes I also saw the patient with the resident physician and confirmed jaquez portions of the history and exam. Agree with the impression and plan as noted in the resident documentation. Upon our exam, patient is lying supine in bed. No distress. He will occasionally have a "body jerk" -which he states he has not had previously but has been having since " mushrooms" prior to his admission. He tells us that the "jerks" are not controllable, although they are not distressing or painful. Psychiatry's been consulted but had not seen the patient at the time of our exam. Exam 120/73, 61, 16, 36.6, 98% on room air Eye contact is fair to poor Affect is flat Heart regular Lungs clear with nonlabored respirations Data Potassium 4.3, BUN 14, creatinine 0.91. Alcohol level upon admission 103.0. Toxicology screen positive for marijuana CT brain was unremarkable. Impression & Plan Suicidal ideation Alcohol abuse with acute alcoholic intoxication Drug intoxication (mushroom) Await psychiatry evaluation Suspect myoclonic jerks are result of mushroom intoxication; will monitor Subjective No acute events overnight. Last AWSS score was 3 late last night; no need for PRN Ativan since admission. Patient confirms recent alcohol/MJ/mushroom use. Reports "force-feeding" himself mushrooms the night before admission with intention to harm himself. Reports 80oz beer intake per day for the last several months, and several years of drinking that preceded that. Reports that he initially increased his drinking to treat insomnia as well as passive wish/SI. Denies active SI or plan; denies previous suicide attempt. Reports h/o alcohol/drug abuse in both parents and grandparents, as well as depression in mom/dad. Denies personal psychiatric history or previous psychiatric medications. Reports currently feeling moderately anxious but without tremors, although he has an involuntary generalized "jerk" that started after using mushrooms and has been persistent. Denies current SI/HI. Denies auditory/visual hallucinations. Denies fever/chills, chest pain, SOB, vomiting, abdominal pain. Review of Systems Review of Systems: Pertinent positives and negatives mentioned in HPI. Physical Exam Constitutional: WD/WN, vitals as above no acute distress Eyes: PERRL, conjunctivae normal, anicteric sclerae Respiratory: normal respiratory effort, lungs clear to auscultation Cardiovascular: RRR, no murmur, no edema Gastrointestinal (Abdomen): normal bowel sounds, soft, nontender, no hepatosplenomegaly Musculoskeletal: no cyanosis or clubbing, extremities motor strength 5/5 Skin: no rashes, warm and dry Neurologic: patellar DTR's 2+ bilat, sensation intact and PERRL, EOMI, accommodation nl, no face palsy, no dysarthria normal touch/pain/proprioception, CN's II-XI intact bilaterally and awake; not confused Speech / Cognition: normal speech Psychiatric: A+Ox3, euthymic affect Eye Contact: + fair eye contact Motor Behavior: n tremor Speech: normal rate/rhythm/volume of speech Affect: + blunted affect Thought Process: goal directed thought process Thought Content: no delusions Suicidal Thoughts: + reports suicidal thoughts, + reports suicidal plan and + reports suicidal intent Homicidal Thoughts: + reports homicidal thoughts, + reports homicidal plan and + reports homicidal intent Hallucinations: no auditory hallucinations and no visual hallucinations Results & Data Results & Data ([facility]) Vital Signs (Past 12 Hours) Vital Signs Temp Pulse Pulse Resp BP Pulse Ox 09/01/20 07:12 61 09/01/20 07:00 36.6 C 53 L 16 120/73 98 09/01/20 03:24 36.6 C 64 16 103/54 L 98 Resident Activity Tracking Resident Involvement: Resident Care Provided Care Provided: Adult Hospital Medicine (1) Mushrooms causing toxic effect Encounter type: initial encounter Injury intent: intentional self-harm Qualified Code(s): T62.0X2A - Toxic effect of ingested mushrooms, intentional self-harm, initial encounter
[2020-09-01] MEDS ORDERED: MELATONIN 3 MG TAB PO PRN (14:32)
[2020-09-01 14:59] LABS: Albumin Level 3.8 gm/dl (3.4-5.0); Bilirubin Direct 0.2 mg/dl (0-0.2); Bilirubin,Total 0.6 mg/dl (0.2-1); Total Protein 7.4 gm/dl (6.4-8.2)
[2020-09-01] MEDS ORDERED: Nursing to Pharmacy Communication SCH (17:00)
[2020-09-02] MEDS: D5NSS + 20MEQ KCL 20 MEQ/1,000 ML BAG IV SCH (04:44)
[2020-09-02 08:03] LABS: Albumin Level 3.5 gm/dl (3.4-5.0); BUN Creatinine Ratio 7.3 (10-20); Bilirubin Direct 0.2 mg/dl (0-0.2); Creatinine Clr Calc Pharmacy 113.5 ml/min; Est GFR (African American) 145.1; Est GFR (Non-African American) 125.2; Potassium 3.9 mmol/L (3.5-5.1)
[2020-09-02 08:07] LABS: Bilirubin,Total 0.8 mg/dl (0.2-1); Phosphorus 4.1 mg/dl (2.5-4.9); Total Protein 6.8 gm/dl (6.4-8.2)
[2020-09-02] MEDS: CEROVITE ADV FORMULA TAB PO SCH (08:08)
[2020-09-02] MEDS: FOLIC ACID 1 MG in SYRINGE 9.8 ML IV SCH (08:08)
[2020-09-02] MEDS: THIAMINE HCL 200 MG in SODIUM CHLORIDE 0.9% 50 ML IV SCH (08:10)
[2020-09-02] MEDS: FAMOTIDINE 20 MG in SYRINGE 3 ML IV SCH (08:11)
--- NOTE | 2020-09-02 14:51 | Hospitalist Progress Note ---
Date of Service September 02, 2020 Assessment & Plan (1) Suicidal ideation: Jamar Santa is a 20 yo male with h/o severe alcohol use disorder (80 ounces of beer per day) and marijuana use who was admitted to [facility] on 08/31/2020 for suicidal ideation in the setting of recent alcohol, marijuana and mushroom use. Suicidal Ideation - h/o depression and passive SI that preceded substance use, apparently told ER staff/attending that he would use a gun to kill himself, no previous attempts, CBC/TSH WNL - suspect underlying depression vs other mood disorder - difficult to diagnosis given extensive alcohol abuse - Psych consulted - pending recs for inpatient vs outpatient psych - continue 1-to-1 suicide precautions Alcohol Use Disorder, Severe - 80oz beer per day for at least several months, BAL 103, no h/o withdrawal - No PRN Ativan required and no withdrawal symptoms, last drink almost 72 hours ago - stop Thiamine/Folic acid/MVI, IV Pepcid - continue AWSS protocol with PRN Ativan - Psych consulted as above Mushroom Intoxication - reports ingestion every several months, experienced visual hallucinations during most recent ingestion - no current hallucinations, jerks/tics almost completely resolved - suspect involuntary jerks/tics are 2/2 mushroom intoxication - trend CMP in AM Elevated Total Protein - likely reactive, repeat as outpatient FEN/GI: Regular DVT Prophylaxis: not indicated Code Status: Full code Disposition: med/surg with tele, inpatient vs outpatient psych pending Psych recs (2) Mood disorder: (3) Alcohol abuse: (4) Former tobacco use: (5) Marijuana abuse: (6) Mushrooms causing toxic effect: (7) Elevated total protein: (8) Myoclonic jerking: Admission and Anticipated Discharge Date Admission Date: August 31, 2020 Supervising Physician Co-Signing Physician Notes I personally examined the patient and verified all jaquez points of history and exam, discussed case, and agree with decision making with Dr Infante. feeling better, wants to go home. a little vague about any ongoing passive suicidality with me, but denies any active SI, notes that he would be staying with a friend for a few days, wants to get help/get involved w outpt psych and counselling, doesn't have active suicide plan, and agrees that if he felt like he were going to take steps to hurt himself/kill himself he would come to ER to seek help. vitals noted nad heent nc at mmm breathing unlabored no accessory muscles good effort skin no rashes no pallor or icterus polysubstance overdose, questionable suicidality -seems more safe/stable to my interview - will await psych follow up for ?corroborating answers - but if he has no active SI, shows willingness to contract for safety, has no plan, and wants to seek help - seems that he would be stable for discharge otherwise as above Subjective No acute events overnight. Patient tolerating full diet well without N/V. Patient reports feeling a little down with passive wish but denies SI/HI. Denies auditory/visual hallucinations. Reports that jerks/tics are mostly resolved now. Denies anxiety, tremor or seizures. Denies chest pain, shortness of breath, abdominal pain. Review of Systems Review of Systems: Pertinent positives and negatives mentioned in HPI. Physical Exam Constitutional: WD/WN, vitals as above no acute distress Eyes: PERRL, conjunctivae normal, anicteric sclerae Respiratory: normal respiratory effort, lungs clear to auscultation Cardiovascular: RRR, no murmur, no edema Gastrointestinal (Abdomen): normal bowel sounds, soft, nontender, no hepatosplenomegaly Musculoskeletal: no cyanosis or clubbing, extremities motor strength 5/5 Skin: no rashes, warm and dry Neurologic: patellar DTR's 2+ bilat, sensation intact and PERRL, EOMI, accommodation nl, no face palsy, no dysarthria normal touch/pain/proprioception, CN's II-XI intact bilaterally and awake; not confused Speech / Cognition: normal speech Psychiatric: A+Ox3, euthymic affect Eye Contact: + fair eye contact Speech: normal rate/rhythm/volume of speech Affect: + blunted affect Thought Process: goal directed thought process Thought Content: no delusions Suicidal Thoughts: + reports suicidal thoughts Hallucinations: no auditory hallucinations and no visual hallucinations Results & Data Results & Data ([facility]) Vital Signs (Past 12 Hours) Vital Signs Temp Pulse Pulse Resp BP Pulse Ox 09/02/20 11:17 36.5 C 75 18 109/67 98 09/02/20 07:48 36.5 C 48 L 18 114/69 98 09/02/20 07:08 51 L Resident Activity Tracking Resident Involvement: Resident Care Provided Care Provided: Adult Hospital Medicine (1) Mushrooms causing toxic effect Encounter type: initial encounter Injury intent: intentional self-harm Qualified Code(s): T62.0X2A - Toxic effect of ingested mushrooms, intentional self-harm, initial encounter
--- NOTE | 2020-09-03 18:37 | Discharge Summary ---
Date of Service September 02, 2020 Admission HPI Per Admitting Provider 20yo male with h/o heavy alcohol use - up to 80oz/day - along with frequent THC use. He presents with suicidal ideation and "feeling depressed for a long time". This is in the setting of drinking heavily last evening, smoking marijuana, and using mushrooms. He would not tell me where he gets his THC and mushrooms from nor how many mushrooms were consumed. He has used the latter in the past but was vague but how frequently he has used hallucinogenic mushrooms. He admitted to using adderall in the past illicitly and has tried cocaine on one occasion only. He admitted to thoughts of dying along with suicidal ideation over a long period of time but again was vague with how he would hurt himself. He apparently told the ER attending he would harm himself with a gun but he denied this to me. He has never taken anti-depressants. He does not see a counselor. He was hospitalized in a mental health unit when he was age 15 for saying something inappropriate to a young female. After involuntary commitment he was sent to another facility but I had a difficult time understanding what that facility was. Denies h/o bipolar d/o. When asked about his mother/father he again was vague and said "they have had difficult lives" but denies a specific mental health disorder. During the visit he was having voluntary vs involuntary myoclonic/body-wide jerks. No tremor. He denies chronic psychosis. He did, however, hear an "unnatural" sound earlier in his ED visit - now resolved. Principal Diagnosis polysubstance overdose Discharge Exam see progress note same date, nad. sl withdrawn affect at first but then more interactive Discharge Data Allergies Allergy/AdvReac Type Severity Reaction Status Date / Time No Known Allergies Allergy Verified 08/31/20 20:36 Consultations 08/31/20 15:22 ED Decision to Admit Stat 08/31/20 20:20 Consult Case Management - Discharge Planning Routine Consult Psychiatry Routine Ordered Studies 08/31/20 15:01 CT head/brain wo con Stat Hospital Course (1) Suicidal ideation: not active now. willing to seek help willing to contract for safety wants outpt psych follow up stable for home // close f/u (2) Mood disorder: for outpatient psych help (3) Alcohol abuse: thiamine/folate. off EtOH now, no withdrawal (4) Former tobacco use: Patient reports quitting in the past. But [id number] he is misusing other substances and smoking THC. (5) Marijuana abuse: . (6) Mushrooms causing toxic effect: effects appear to have worn off. (7) Elevated total protein: Will need this repeated as an outpatient. likely reactive. (8) Myoclonic jerking: resolved Total Time Total Time Spent Total Time Spent (In Minutes): <30 Discharge Plan Discharge Items Patient Disposition: Home - Self-Care Reason For Visit: POLYSUBSTANCE INGESTION,SUICIDAL IDEATION Discharge Diagnosis: Suicidal Ideation Polysubstance Abuse Activity: Per Instructions section Non-emergency contact: Primary Care Provider and Psychiatrist Call non-emergency contact if: you have any medication questions and your symptoms worsen Follow-up/Referrals: Gold Infante MD [Resident] - PCP,NO [Primary Care Provider] - Diet: Regular Addtl Attending Provider Instructions: You were admitted to [facility] on 08/31/2020 for expressing thoughts of wanting to harm yourself in the context of recent alcohol, marijuana and psychedelic mushroom use. You were started on several vitamins, including thiamine, folic acid and a multivitamin, which are commonly low in patients who chronically drink a large amount of alcohol. We also ordered a medication called Ativan which is used to help with symptoms of alcohol withdrawal, although you did well without alcohol withdrawal symptoms during this hospitalization, and you did not need the medication. Additionally, we had our Psychiatrist see you to evaluate for suicide risk. It seems that you may have some depression and/or anxiety that started before your alcohol use, and both our team and the Psychiatrist recommend that you follow-up with a Psychiatrist and a general doctor (PCP) on an outpatient basis to further address this. You will be discharged in good, stable condition on 09/02/2020. We recommend that you follow- up with both of the doctors listed above. Lastly, you were found to have a high level of protein in your blood, and we recommend that you follow up with a PCP to check on this again. Pending Studies at Discharge: No Stand-Alone Forms: My [facility], Smoking Cessation Medications and DC Order Prescriptions: No Action No Known Home Medications RF: 0 Discharge Orders: Discharge Order (Routine); Ordered 09/02/20 Ordered By: Ruslan Claire Admission Data Admit Date/Time: 08/31/20 16:25 Attending Provider: Deniz Ward Admit Provider: Rohan Olea Primary Care Provider: PCP,NO Other Providers: Rohan Olea ; Elodia Bose ; Fredrick Pierre Other Interventions: Discharge Summary Assessment (RN) Last Done: 09/02/20 20:05 Coding Level of Care Code D/C Day Management <30 mins Diagnoses Suicidal ideation R45.851 Mood disorder F39 Alcohol abuse F10.10 Former tobacco use Z87.891 Marijuana abuse F12.10 Mushrooms causing toxic effect T62.0X2A Encounter type: initial encounter Injury intent: intentional self-harm Elevated total protein R77.8 Myoclonic jerking G25.3
[2020-09-03 19:57] LABS: Marijuana Quant, GCMS Urine 46 ng/mL (<5)
== END 2020-09-02 21:25 | disposition home or self-care (01) | DRG 881 ==
LOC: ED 11:38 → 2W 16:25 → SUATTDRO 16:25 → 2W 19:37

== ENCOUNTER 2023-09-09 02:16 | Inpatient (IN) ==
--- NOTE | 2023-09-09 02:58 | Emergency Department Note ---
Impression & Plan Suicidal ideation, Alcohol intoxication ED Provider Note CHIEF COMPLAINT: Mental health evaluation HISTORY OF PRESENT ILLNESS: This 23-year-old male with past medical history of anxiety disorder, marijuana abuse, alcohol abuse presents emergency department intoxicated, stating that he needs help. He states he was drinking with his roommate dean and mentioned it. He states if he had more money he would "buy a gun and blow (his) head off." Patient states he has been thinking about suicide for the last 14 to 15 years. He does feel as though it has gotten worse in the last week. He denies any significant marijuana use. He denies any other substances of abuse. He denies taking any medications in an effort to overdose this evening. Patient did admit that he contemplated hanging himself today because he does not actually have money for gun. He has also contemplated overdosing in the past, states he is not on any medications currently. REVIEW OF SYSTEMS: A review of systems was performed with positives and pertinent negatives listed in the history of present illness. 10 systems were reviewed and are otherwise negative. ALLERGIES: see below MEDICATIONS: see below PMH: see below SOCIAL HISTORY: see below DDx: Mood disorder, infection, hypoglycemia, electrolyte abnormalities, intracerebral event, toxicologic, as well as other pathologies. PHYSICAL EXAM: Vital signs reviewed. General: Well-appearing 23-year-old male, in no significant distress. HEENT: No scleral icterus, PERRLA, neck supple. Atraumatic. Moist mucous membranes. Cardiovascular: Regular rate and rhythm, no extra sounds. Pulmonary: Clear to auscultation bilaterally, normal work of breathing. Abdomen: Soft, nontender, nondistended, positive bowel sounds. Musculoskeletal: Atraumatic, no peripheral edema. Psych: Positive SI, negative HI. Patient does seem to be responding to external stimuli however is intoxicated. Denies auditory and visual hallucinations. Neurologic: Patient awake alert and answers most questions appropriately, speech is generally clear but questionably slurred at times. Skin: Warm, dry, no rash EMERGENCY DEPARTMENT COURSE/MDM: This patient was evaluated and appeared to be in no significant distress. Patient was intoxicated, but interactive. He did admit to suicidal ideation that has been an issue for many years however has been worse over the last several days. He does have a plan to shoot himself or hang himself. He is voluntary for admission at this time however will would not be medically cleared until 12:00. His blood alcohol was 320 at 3 AM. Case has been signed out at the change of shift to Dr. Oglesby pending psychiatric case management consultation. DISPOSITION: Pending Past Med/Surg History Medical History Stimulant abuse Mood disorder Mushrooms causing toxic effect Marijuana abuse Former tobacco use Alcohol abuse Surgical History H/O wisdom tooth extraction Family History Grandfather (Paternal) Diabetes Social History Smoking Status: Current every day smoker Tobacco Type: Cigarettes and E-cigarettes / Vaping Hx Alcohol Use: Yes Alcohol type: beer Alcohol Intake Frequency: 4 or More x per/Week Alcohol Intake Frequency Comment: 80oz/day Hx Substance Use: Yes Prescribed Medications: Marijuana Non-Prescribed Medications: Amphetamines, Hallucinogens and Marijuana Last Used Substance: Just Prior to Arrival Preferred Language: Faroese Communication Ability: Effective Business Services Officer Required: No Beliefs That Will Affect Care: None marital status: Single Current Living Situation: Other Current Living Situation Comment: 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 Feels Safe at Home: Yes Do you think of yourself as: straight/heterosexual Sexual Activity: has been sexually active within the last 12 months Assistive Devices: None Allergies Allergies Allergy/AdvReac Type Severity Reaction Status Date / Time No Known Allergies Allergy Verified 08/31/20 20:36 Home Meds Home Medications Medication Instructions Recorded Confirmed No Known Home Medications 08/31/20 08/31/20 Results & Data (ED) Vital Signs Vital Signs - 24 hr 09/09/23 02:22 09/09/23 05:27 Temperature 36.9 C 36.9 C Temperature Source Temporal Artery Scan Oral Pulse Rate 98 H Pulse Rate [Finger] 64 Pulse Rhythm Regular Pulse Strength Normal Respiratory Rate 20 17 Respiratory Effort / Characteristics Non-Labored Spontaneous Non-Labored Respiratory Depth Normal Normal Respiratory Pattern Regular Blood Pressure 141/88 H Blood Pressure [Right Arm] 105/60 Blood Pressure Mean 105 Blood Pressure Mean [Right Arm] 75 Blood Pressure Position Sitting Blood Pressure Position [Right Arm] Lying Pulse Oximetry 100 99 Oxygen Delivery Method Room Air Room Air Sepsis Recent Fever Within 48 Hours No Sepsis New/Unexplained Change in Mental Status N/A Sepsis Action Taken by Nursing No Action Required Home Medications Current Medication List: was personally reviewed by me Laboratory Data Attestation: I reviewed the patient's lab results. 09/09/23 02:56 09/09/23 02:56 Lab Results 09/09/23 09/09/23 09/09/23 Range/Units 02:40 02:56 03:02 WBC 4.70 L (4.8-10.8) K/ul RBC 5.52 (4.70-6.10) M/uL Hgb 16.1 (14.0-18.0) g/dl Hct 48.0 (42.0-52.0) % MCV 87.0 (80.0-100.0) fL MCH 29.2 (25.0-34.0) pg MCHC 33.5 (32.0-36.0) g/dL RDW Std Deviation 40.2 (36.4-46.3) fL RDW Coeff of Haydee 12.8 (11.5-14.5) % Plt Count 327 (130-400) K/uL MPV 10.3 (9.4-12.4) fL Neutrophils % (Manual) 38 % Lymphocytes % (Manual) 29 % Monocytes % (Manual) 5 % Eosinophils % (Manual) 2 % Basophils % (Manual) 1 % Neutrophils # (Manual) 1.79 (1.40-6.50) K/uL Total Absolute Neuts 1.79 (1.4-6.5) K/uL Lymphocytes # (Manual) 1.36 (1.2-3.4) K/uL Total Abs Lymphocytes 2.54 (1.2-3.4) K/uL Monocytes # (Manual) 0.24 (0.11-0.59) K/uL Eosinophils # (Manual) 0.09 (0-0.50) K/uL Basophils # (Manual) 0.05 (0-0.2) K/uL Large Granular Lymphs 25 % # Lrg Granular Lymphs 1.18 K/uL Sodium 143 (136-145) mmol/L Potassium 3.7 (3.5-5.1) mmol/L Chloride 106 (98-107) mmol/L Carbon Dioxide 23 (21-32) mmol/L Anion Gap 14 H (3-11) BUN 8 (6-23) mg/dl Creatinine 0.81 (0.6-1.4) mg/dl Est Cr Clr Drug Dosing 128.3 ml/min Est GFR ( Amer) 144.2 ml/min Est GFR (Non-Af Amer) 124.4 ml/min BUN/Creatinine Ratio 9.9 L (10-20) Glucose 97 (70-99(Fasting)) mg/dl Calcium 10.0 (8.6-10.3) mg/dl Total Bilirubin 0.4 (0.2-1.0) mg/dl AST 68 H (13-39) U/L ALT 76 H (7-52) U/L Alkaline Phosphatase 53 (34-104) U/L Total Protein 9.1 H (6.0-8.3) gm/dl Albumin 5.4 H (3.4-5.0) gm/dl Globulin 3.7 (2.5-4.0) gm/dl Albumin/Globulin Ratio 1.5 (0.9-2) TSH 4.281 (0.300-4.500) uIu/ml Urine Color Yellow Urine Appearance Clear (Clear) Urine pH 7.0 (4.5-7.5) Ur Specific [place] 1.006 (1.000-1.030) Urine Protein Negative (Negative) Urine Glucose (UA) Negative (Negative) Urine Ketones Negative (Negative) Urine Blood Negative (Negative) Urine Nitrite Negative (Negative) Urine Bilirubin Negative (Negative) Urine Urobilinogen Negative (Negative) Ur Leukocyte Esterase Negative (Negative) Salicylates < 3.0 L (3.0-30) mg/dl Urine Opiates Screen Neg (Neg) Ur Methadone, Qual Neg (Neg) Acetaminophen < 3 L (10-30) ug/ml Urine Barbiturates Neg (Neg) Ur Phencyclidine (PCP) Neg (Neg) U Amphetamin/Meth Scrn Neg (Neg) MDMA (Ecstasy) Screen Neg (Neg) U Benzodiazepines Scrn Neg (Neg) Ur Cocaine Metabolite Neg (Neg) U Marijuana (THC) Screen Neg (Neg) Ethyl Alcohol mg/dL 324.3 H (<10.0) mg/dl SARS-CoV-2, RNA, NAAT NEGATIVE (NEGATIVE) Discharge Plan Visit Data Chief Complaint: Mental Health Evaluation Stated Complaint: [facility] ED Provider: Solagne Underwood Discharge Problem: Suicidal ideation, Alcohol intoxication Forms Stand Alone Forms: My [facility], Suicide Prevention Resources Prescriptions Prescriptions: No Action No Known Home Medications Referrals Referrals: Claudio Regan, [Outside Practitioners] - Discharge Problem: Alcohol intoxication Qualifiers: Complication of substance-induced condition: with unspecified complication Q ualified Code(s): F10.929 - Alcohol use, unspecified with intoxication, unspecified
[2023-09-09 03:23] LABS: Hemoglobin 16.1 g/dl (14.0-18.0); Mean Corpuscular Hemoglobin 29.2 pg (25.0-34.0); Mean Corpuscular Hgb Conc 33.5 g/dL (32.0-36.0); Mean Platelet Volume 10.3 fL (9.4-12.4); Platelet Count 327 K/uL (130-400); RDW Coefficient of Variation 12.8 % (11.5-14.5); RDW Standard Deviation 40.2 fL (36.4-46.3); Red Blood Count 5.52 M/uL (4.70-6.10)
[2023-09-09 03:28] LABS: Appearance Urine Clear (Clear); Bilirubin Urine Negative (Negative); Blood Urine Negative (Negative); Color Urine Yellow; Glucose Urine UA Negative (Negative); Ketones Urine Negative (Negative); Leukocyte Esterase Urine Negative (Negative); Nitrite Urine Negative (Negative); Protein Urine Negative (Negative); Specific Gravity Urine 1.006 (1.000-1.030); Urobilinogen Urine Negative (Negative)
[2023-09-09 03:39] LABS: Albumin Globulin Ratio 1.5 (0.9-2); Albumin Level 5.4 gm/dl (3.4-5.0); BUN Creatinine Ratio 9.9 (10-20); Bilirubin,Total 0.4 mg/dl (0.2-1.0); Creatinine Clr Calc Pharmacy 128.3 ml/min; Est GFR (African American) 144.2 ml/min; Est GFR (Non-African American) 124.4 ml/min; Globulin 3.7 gm/dl (2.5-4.0); Potassium 3.7 mmol/L (3.5-5.1); Total Protein 9.1 gm/dl (6.0-8.3)
[2023-09-09 03:52] LABS: Amphetamines+Metham, Urine Neg (Neg); Barbiturates, Urine Neg (Neg); Benzodiazepine, Urine Neg (Neg); Cocaine, Urine Neg (Neg); MDMA (Ecstacy), Urine Neg (Neg); Marijuana, Urine Neg (Neg); Methadone, Urine Neg (Neg); Opiate, Urine Neg (Neg); Phencyclidine, Urine Neg (Neg)
[2023-09-09 03:53] LABS: Thyroid Stimulating Hormone 4.281 uIu/ml (0.300-4.500)
[2023-09-09 03:55] LABS: ALC (manual) 2.54 K/uL (1.2-3.4); ANC (manual) 1.79 K/uL (1.4-6.5); Basophils # (manual) 0.05 K/uL (0-0.2); Basophils % (manual) 1 %; Eosinophils # (manual) 0.09 K/uL (0-0.50); Eosinophils % (manual) 2 %; Large Granular Lymph # (manua 1.18 K/uL; Large Granular Lymph % (manual) 25 %; Lymphocytes # (manual) 1.36 K/uL (1.2-3.4); Lymphocytes % (manual) 29 %; Monocytes # (manual) 0.24 K/uL (0.11-0.59); Monocytes % (manual) 5 %; Neutrophils # (manual) 1.79 K/uL (1.40-6.50); Neutrophils % (manual) 38 %
[2023-09-09 04:16] LABS: Acetaminophen < 3 ug/ml (10-30); Salicylate < 3.0 mg/dl (3.0-30)
--- NOTE | 2023-09-09 07:04 | Emergency Department Note ---
ED Visit Note I received this patient at change of shift signout from Dr. Underwood. Please see her note for overnight care. The patient is a 23-year-old male who presented to the emergency department with alcohol intoxication. The patient also had some mental health complaints. He was medically cleared in the emergency department with the exception of an elevated alcohol level. The patient is scheduled to be reevaluated by mental health around noon when he is no longer clinically intoxicated. He did have some mental health complaints including suicidal ideation with a plan. This will be revisited later by the mental health egg caser. Once the patient was medically cleared and no longer clinically intoxicated he was evaluated by the mental health egg caser. The patient continues to have significant mental health complaints. He is having active suicidal ideation. The patient was felt to be a good candidate for inpatient management. At this time he is agreeable to inpatient management and was referred to [facility]. Ultimately he was excepted to [facility]. for inpatient management. I discussed the patient's condition with the emergency part mental-health egg caser as well as the inpatient mental health team and the psychiatrist. .
[2023-09-09] MEDS ORDERED: LORazepam 1 MG TAB PO PRN ×3 (15:06)
[2023-09-09] MEDS ORDERED: Ativan PO Alcohol Withdrawal--Active Protocol PO PRN (15:06)
[2023-09-09] MEDS ORDERED: ALUMINUM/MAGNESIUM SUSP 30 ML UDC PO PRN (15:09)
[2023-09-09] MEDS ORDERED: hydrOXYzine HCl 25 MG TAB PO PRN (15:09)
[2023-09-09] MEDS ORDERED: BISMUTH SUBSALICYLATE LIQD 236 ML PO PRN (15:09)
[2023-09-09] MEDS ORDERED: SODIUM CHLORIDE 0.65% NA SOLN 45 ML (OCEAN) PRN (15:09)
[2023-09-09] MEDS ORDERED: MAGNESIUM HYDROXIDE SUSP 30 ML UDC PO PRN (15:09)
[2023-09-09] MEDS ORDERED: ACETAMINOPHEN 325 MG TAB PO PRN (15:09)
[2023-09-09 15:51] LABS: Magnesium 2.3 mg/dl (1.7-2.4)
[2023-09-09] MEDS: THIAMINE HCL 100 MG TAB PO SCH (18:16)
[2023-09-09] MEDS: hydrOXYzine HCl 25 MG TAB PO PRN (21:00)
[2023-09-10] MEDS: FLUoxetine HCL 20 MG CAP PO SCH (13:59)
--- NOTE | 2023-09-10 15:28 | History & Physical ---
Date of Service September 10, 2023 Impression / Recommendations Impression This is a young man who has a history of depression but has had very heavy alcohol use over the last few years, especially the last year or 2. He has been living in [place] trying to hold down a job. He is having some pretty heavy financial stress right now. Sounds like he is genetically susceptible to substance use problems based on his family history. We talked about how his use of alcohol could be causing him to be be depressed or his depression could be causing him to drink. I explained that being off of alcohol for a month would allow us to try to figure out the primary source of his depression. Nevertheless, he does want some help. (1) Mood disorder: (2) Severe alcohol use disorder: Plan 1. We will have the patient on our unit for safety, further evaluation, and treatment. I encouraged him to go to groups and activities to help distract himself. 2. We have placed him on an alcohol detox protocol. We are monitoring his vital signs. His most recent blood pressure was 141/92 which is on the high side but not terribly high. Temperature and pulse look good. If he is going to go into withdrawal it probably will be within the next 24 hours or so. 3. I started him on fluoxetine 20 mg daily to try to help with his mood. I reviewed the uses, side effects, and time course and the patient gave informed consent. 4. She will take part in our therapeutic milieu, attend groups and activities, maintain good hygiene, and try not to isolate. 5. We will try to set up some type of family or meeting with his friend to try to come up with a good social support plan. Will also try to set him up with outpatient medication management, therapy, and outpatient alcohol treatment. 6. Patient was worried about possible HIV from a sexual encounter and so I wrote for an HIV test. It is still pending. Suicide Risk Level Suicide Risk Level: Moderate (q15 min suicide checks) Risk Factors Assessment Do You Have Access To A Gun?: No Protective Factors Assessment Employed: Yes ([employer]) Psychiatric History Identifying Data AIMEE MARTINI is a 23-year-old M who currently lives in [place]. He has a history of heavy alcohol use and depression. He was admitted on 09/09/23 15:13 voluntarily due to recent suicidal ideation. I met with him at 11:30 AM today. Chief Complaint "I think that I have had mental health issues for a long time that I did not understand and cannot figure out if it is alcohol or other stuff." History of Present Illness Aimee presented to our emergency room because he was really fed up with things going on in his life. He lives in a house in [place] with a roommate. He has been having some pretty severe financial issues with paying off student loans and paying his rent. This week he was given less hours of work and that put him in somewhat of a crisis. He wants to work up to 40 hours a week and is even considering getting a second job. He had a conversation with his father who lives in [place] and he decided to come in to get some help. He knows that his alcohol use is getting out of control. He drinks on a daily basis and drinks various types of alcohol. He says that he drinks somewhere between 6-12 drinks daily. He is not involved in any organized activities or episcopal. He is involved in the "[place]" here in [facility]. He denies any legal issues. Sleep has been poor to the point that he has to drink in order to get to sleep every night. Appetite has been down. He says that it is difficult to eat when he is around food all the time but he manages to have at least 1 meal a day. Mood is described as "grim, apprehensive, and anxious." He has anhedonia. He says his energy is okay. He has difficulty with focus. He has guilt and some hopelessness. He denies homicidal thoughts. He said he "tried cutting" recently and occasionally will knock himself on the head but never to cause any major pain. He is not sure if he has not been involved in any type of trauma in his life. He denies any hallucinations or ideas of reference. Besides alcohol and the cocaine I mentioned above, he says he will sometimes use mushrooms or acid. His alcohol use is pretty heavy and at 1 time recently he was on naltrexone and Vivitrol for about 3 weeks but it made him feel miserable. He has tried cutting back on alcohol and is failed. He has been angered by people talking about his alcohol use. He feels bad about it. He will often use an eye rasper machine operator in the morning. He denies any history of any sami. Past Psychiatric History Previous Psych History: There is no history of any special education services when he was younger. Current Psychiatric Diagnosis: SI Outpatient Services: He has a history of seeing a counselor when he was a teenager. He does not currently have a therapist. Somewhat recently he saw a psychiatrist and was prescribed Vivitrol and naltrexone, but they would not work with him until he had been off of alcohol for about a month. Previous Psych Admissions: Patient was hospitalized at age 15 for psychiatric reasons. Do You Have Access To A Gun?: No History of Previous Suicide Attempt: No Past Head Trauma/Neuro History He has no chronic medical issues and no medical hospitalizations. He had his wisdom teeth removed. No other surgical procedures. No history of any seizures. He did have a concussion when he was in the fifth grade. Allergies Allergy/AdvReac Type Severity Reaction Status Date / Time No Known Allergies Allergy Verified 08/31/20 20:36 Home Medications Medication Instructions Recorded Confirmed Type No Known Home Medications 08/31/20 08/31/20 History Family History Family History of: Alcoholism/Drug Abuse and Doesn't Know (Patient says there is a lot of substance use on both sides of the family. Sister has a history of a suicide attempt. Father has a history of depression. Brother has a history of ADHD. He thinks there are some people that have been in senior living and his family but he does not know who and why.) Family Mental Health History Comment: long hx on both sides of family with substance/alcohol issues thinks that sister has attempted suicide in the past Alcohol History Hx of Alcohol Use Over the Past 12 Months: Yes AUDIT Total Score: 32 Smoking Use tobacco type: e-cigarettes Smoking Status: Current every day smoker Smoking packs per day: 0.5 Substance History Hx of Prescription Med Misuse Over the Past 12 Months: No Hx of Over the Counter Med Misuse Over the Past 12 Months: No Hx of Inhalent Misuse Over the Past 12 Months: No Hx of Organic Substance Use Over the Past 12 Months: Yes (marijuana) Hx of Illegal Substances/Street Drug Use Over Past 12 Months: No Problems as a Result of Past Substance Use Comments: No job loss however it has affected his job by being late and tired Personal History Living Arrangements: Home Born In: [place] Highest Grade Completed: Some College Highest Grade Completed Comment: completed 3 semester Marital Status: Single Number Of Children: 0 Beliefs That Will Affect Care: None Additional Comments: Patient lives in [facility] in a house with his roommate. He is not in a relationship. He had about 3 semesters of college over 4 years. He has never been in the . 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 He has no legal issues. He says he has 3 or 4 close friends with whom he feels he can open up. Patient History Medical History Stimulant abuse Mood disorder Mushrooms causing toxic effect Marijuana abuse Former tobacco use Alcohol abuse Surgical History H/O wisdom tooth extraction Family History Grandfather (Paternal) Diabetes Social History Smoking Status: Current every day smoker Tobacco Type: Cigarettes and E-cigarettes / Vaping Hx Alcohol Use: Yes Alcohol type: beer Alcohol Intake Frequency: 4 or More x per/Week Alcohol Intake Frequency Comment: 80oz/day Hx Substance Use: Yes Prescribed Medications: Marijuana Non-Prescribed Medications: Amphetamines, Hallucinogens and Marijuana Last Used Substance: Just Prior to Arrival Preferred Language: Indian Communication Ability: Effective Road Production General Manager Required: No Beliefs That Will Affect Care: None marital status: Single Current Living Situation: Other Current Living Situation Comment: 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 No headache or fever. No problems with eyes, ears, nose, teeth, or swallowing. No pain or swelling in their neck. No wheezing, coughing, or shortness of breath. No chest pain, racing heartbeat, or irregular heart rate. No diarrhea, upset stomach, or constipation. No dysuria, problems emptying their bladder, initiating a urine stream, or hematuria. No skin lesions. No concerns about an STD. No breast tenderness, lumps, or milk production. No muscle weakness, numbness, tingling, or tremors. No broken bones. No problems with their joints. No problems with their feet. No bl eeding problems. Physical Exam Psychiatric: Patient was alert and oriented x 3. They were clean and well-groomed. Eye contact was good. Speech was normal. Mood was described as "grim, apprehensive, and anxious." Affect was slightly restricted. Thought process was logical and goal-directed. There was no evidence of any hallucinations or delusions. Patient has some suicidal ideation but no particular plan. He denies any homicidal thoughts. Memory was good; he knew his date of , the president's name, and the capital of [place]. Concentration was okay; he was able to spell the word world backwards pretty easily. No abnormal movements were seen. No tremors. Gait was normal. Insight and judgment are impaired. Vital Signs (Past 24 Hours): Last Vital Signs Temp 36.7 C 09/10/23 12:40 Pulse 79 09/10/23 12:40 Resp 16 09/10/23 12:40 BP 141/92 H 09/10/23 12:40 Pulse Ox 98 09/10/23 05:31 O2 Del Method Room Air 09/10/23 05:31 Exam Statement: A physical exam was performed in the emergency department by Dr. Underwood. There were some concerns that he was having positive suicidal ideation and possibly responding to external stimuli but he was intoxicated at the time. Results & Data ([facility]) Laboratory Results Laboratory Results - last 24 hr 09/09/23 09/10/23 02:56 12:39 Magnesium 2.3 HIV (1&2) Ag & Ab Conf Pending CBC had a low white blood cell count at 4.70. Hemoglobin, hematocrit, MCV, and platelets were normal. A CMP had an anion gap of 14, AST 68, ALT 76, total protein 9.1, albumin 5.4. TSH was normal. Urinalysis was normal. Salicylates negative. Acetaminophen negative. Urine drug screen negative. Alcohol level on September 09 at 2:56 AM was 324.3. COVID was negative. Current Inpatient Medications Current Inpatient Medications: Current Inpatient Medications Acetaminophen (Acetaminophen 325 Mg Tab) 650 mg PO Q4H PRN PRN Reason: Headache or Minor Fever Stop: 10/09/23 15:08 Al Hydrox/Mg Hydrox/Simethicone (Aluminum/Magnesium Susp 30 Ml Udc) 30 ml PO Q4H PRN PRN Reason: GI Upset Stop: 10/09/23 15:08 Bismuth Subsalicylate (Bismuth Subsalicylate Liqd 236 Ml) 15 ml PO PRN PRN PRN Reason: Loose Stool Stop: 10/09/23 15:08 Fluoxetine HCl (Fluoxetine Hcl 20 Mg Cap) 20 mg PO QAM CHRISTIAN Stop: 10/10/23 12:44 Last Admin: 09/10/23 13:59 Dose: 20 mg Hydroxyzine HCl (Hydroxyzine Hcl 25 Mg Tab) 50 mg PO HSZ PRN PRN Reason: Insomnia Stop: 10/09/23 15:08 Last Admin: 09/09/23 21:00 Dose: 50 mg Hydroxyzine HCl (Hydroxyzine Hcl 25 Mg Tab) 25 mg PO Q4H PRN PRN Reason: Anxiety Stop: 10/09/23 15:08 Lorazepam (Lorazepam 1 Mg Tab) 2 mg PO UD PRN; Protocol PRN Reason: EtOH Withdrawal AWSS Score 8,9 Stop: 10/09/23 15:05 Lorazepam (Lorazepam 1 Mg Tab) 3 mg PO ONCE PRN; Protocol PRN Reason: EtOH Withdrawal AWSS Score 10 & above Lorazepam (Lorazepam 1 Mg Tab) 1 mg PO UD PRN; Protocol PRN Reason: EtOH Withdrawal AWSS Score 6,7 Stop: 10/09/23 15:05 Magnesium Hydroxide (Magnesium Hydroxide Susp 30 Ml Udc) 30 ml PO DAILY PRN PRN Reason: Constipation Stop: 10/09/23 15:08 Sodium Chloride (Sodium Chloride 0.65% Na Soln 45 Ml ([place])) 1 - 2 sprays NA PRN PRN PRN Reason: Nasal Dryness/Congestion Stop: 10/09/23 15:08 Thiamine HCl (Thiamine Hcl 100 Mg Tab) 100 mg PO QAM CHRISTIAN Stop: 10/09/23 15:14 Last Admin: 09/10/23 08:57 Dose: 100 mg
--- NOTE | 2023-09-11 12:57 | Psychiatric Progress Note ---
Date of Service September 11, 2023 Impression / Recommendations Impression 23 yo male admit with daily alcohol use and recurrent depression. No symptoms of withdrawal in first 2 days on unit. Was initially on MNPR by Dr. Ortiz. Overall, I spent a total of 51 minutes with this case, including review of chart, direct evaluation of the patient, counseling the patient, coordination with nursing, and documentation. (1) Mood disorder: (2) Severe alcohol use disorder: Plan 09/11/23: d/c AWSS protocol, d/c MNPR, patient declines a retrial of Naltrexone. Continue Prozac trial. note: The patient has problematic drinking. Brief inter vention was offered and accepted. Intervention was greater than 5 min in length and included need to abstain from alcohol due to depressant effects and available treatment options. horticulture worker will also assist in anticipating barriers to sobriety and in problem-solving for solutions to those problems while arranging for referral to appropriate treatment. The patient is in action stage with regards to transtheoretical model of change. Also, reconsented for Prozac. Risks/benefits/alternatives reviewed re: antidepressants for the treatment of depression and/or anxiety. Discussion included but was not limited to FDA warnings re: suicidality in adolescents and young adults. 09/10/23 (as per Dr. Huggins) 1. We will have the patient on our unit for safety, further evaluation, and treatment. I encouraged him to go to groups and activities to help distract himself. 2. We have placed him on an alcohol detox protocol. We are monitoring his vital signs. His most recent blood pressure was 141/92 which is on the high side but not terribly high. Temperature and pulse look good. If he is going to go into withdrawal it probably will be within the next 24 hours or so. 3. I started him on fluoxetine 20 mg daily to try to help with his mood. I reviewed the uses, side effects, and time course and the patient gave informed consent. 4. She will take part in our therapeutic milieu, attend groups and activities, maintain good hygiene, and try not to isolate. 5. We will try to set up some type of family or meeting with his friend to try to come up with a good social support plan. Will also try to set him up with outpatient medication management, therapy, and outpatient alcohol treatment. 6. Patient was worried about possible HIV from a sexual encounter and so I wrote for an HIV test. It is still pending. Suicide Risk Level Suicide Risk Level: Moderate (q15 min suicide checks) Risk Factors Assessment Do You Have Access To A Gun?: No Protective Factors Assessment Employed: Yes ([employer]) Interval History Identifying Information AIMEE MARTINI is a 23-year-old M who currently lives in [place]. He has a history of heavy alcohol use and depression. He was admitted on 09/09/23 15:13 voluntarily due to recent suicidal ideation. Chief Complaint "it's not like I get cravings, I just say forget it after a while and drink". Review of Systems Sleep Information Total Hours of Sleep: 5.5 Sleep Comments: Vistaril PRN Meal Information Percent Meal Consumed - Breakfast: 100 Percent Meal Consumed - Lunch: 100 Percent Meal Consumed - Dinner: 100 Subjective Subjective Patient was seen & assessed and interval progress reviewed with nursing and social work. He is tolerating Prozac with only minor N this am. Cooperative with unit routines. Amenable to [facility] referral. He denies withdrawal symptoms. Physical Exam Psychiatric Orientation: alert and oriented x 3 Apperance: appropriately dressed and appropriately groomed Eye Contact: good eye contact Motor Behavior: no abnormal motor movements Speech: normal rate/rhythm/volume of speech Affect: + depressed affect Mood: + depressed mood Thought Process: goal directed thought process Thought Content: reality based without delusions Suicidal Thoughts: denies suicidal thoughts Homicidal Thoughts: denies homicidal thoughts Hallucinations: no auditory hallucinations and no visual hallucinations Cognition: attention grossly intact and language grossly intact Estimated Intelligence: consistent with education level Insight: + limited insight Judgment: + limited judgement Vital Signs (Past 24 Hours) Last Vital Signs Temp 36.6 C 09/11/23 11:06 Pulse 62 09/11/23 11:06 Resp 18 09/11/23 11:06 BP 122/83 09/11/23 11:06 Pulse Ox 100 09/11/23 11:06 O2 Del Method Room Air 09/11/23 11:06 Results & Data ([facility]) Laboratory Results Laboratory Results - last 24 hr 09/10/23 12:39 HIV (1&2) Ag & Ab Conf NON-REACTIVE Current Inpatient Medications Current Inpatient Medications: Current Inpatient Medications Acetaminophen (Acetaminophen 325 Mg Tab) 650 mg PO Q4H PRN PRN Reason: Headache or Minor Fever Stop: 10/09/23 15:08 Al Hydrox/Mg Hydrox/Simethicone (Aluminum/Magnesium Susp 30 Ml Udc) 30 ml PO Q4H PRN PRN Reason: GI Upset Stop: 10/09/23 15:08 Bismuth Subsalicylate (Bismuth Subsalicylate Liqd 236 Ml) 15 ml PO PRN PRN PRN Reason: Loose Stool Stop: 10/09/23 15:08 Fluoxetine HCl (Fluoxetine Hcl 20 Mg Cap) 20 mg PO QAM CHRISTIAN Stop: 10/10/23 12:44 Last Admin: 09/11/23 09:27 Dose: 20 mg Hydroxyzine HCl (Hydroxyzine Hcl 25 Mg Tab) 50 mg PO HSZ PRN PRN Reason: Insomnia Stop: 10/09/23 15:08 Last Admin: 09/09/23 21:00 Dose: 50 mg Hydroxyzine HCl (Hydroxyzine Hcl 25 Mg Tab) 25 mg PO Q4H PRN PRN Reason: Anxiety Stop: 10/09/23 15:08 Lorazepam (Lorazepam 1 Mg Tab) 2 mg PO UD PRN; Protocol PRN Reason: EtOH Withdrawal AWSS Score 8,9 Stop: 10/09/23 15:05 Lorazepam (Lorazepam 1 Mg Tab) 3 mg PO ONCE PRN; Protocol PRN Reason: EtOH Withdrawal AWSS Score 10 & above Lorazepam (Lorazepam 1 Mg Tab) 1 mg PO UD PRN; Protocol PRN Reason: EtOH Withdrawal AWSS Score 6,7 Stop: 10/09/23 15:05 Magnesium Hydroxide (Magnesium Hydroxide Susp 30 Ml Udc) 30 ml PO DAILY PRN PRN Reason: Constipation Stop: 10/09/23 15:08 Sodium Chloride (Sodium Chloride 0.65% Na Soln 45 Ml ([place])) 1 - 2 sprays NA PRN PRN PRN Reason: Nasal Dryness/Congestion Stop: 10/09/23 15:08 Thiamine HCl (Thiamine Hcl 100 Mg Tab) 100 mg PO QAM CHRISTIAN Stop: 10/09/23 15:14 Last Admin: 09/11/23 09:27 Dose: 100 mg
--- NOTE | 2023-09-12 12:25 | Psychiatric Progress Note ---
Date of Service September 12, 2023 Impression / Recommendations Impression 23 yo male admit with daily alcohol use and recurrent depression. No symptoms of withdrawal in first 2 days on unit. Was initially on MNPR by Dr. Ortiz. Overall, I spent a total of 35 minutes with this case, including review of chart, direct evaluation of the patient, counseling the patient, coordination with nursing, and documentation. (1) Mood disorder: (2) Severe alcohol use disorder: Plan 09/12/23: continue medication trial, safety planning, [facility] referral on 09/13 when office reopens. 09/11/23: d/c AWSS protocol, d/c MNPR, patient declines a retrial of Naltrexone. Continue Prozac trial. note: The patient has problematic drinking. Brief intervention was offered and accepted. Intervention was greater than 5 min in length and included need to abstain from alcohol due to depressant effects and available treatment options. smokehouse worker will also assist in anticipating barriers to sobriety and in problem-solving for solutions to those problems while arranging for referral to appropriate treatment. The patient is in action stage with regards to transtheoretical model of change. Also, reconsented for Prozac. Risks/benefits/alternatives reviewed re: antidepressants for the treatment of depression and/or anxiety. Discussion included but was not limited to FDA warnings re: suicidality in adolescents and young adults. 09/10/23 (as per Dr. Huggins) 1. We will have the patient on our unit for safety, further evaluation, and treatment. I encouraged him to go to groups and activities to help distract himself. 2. We have placed him on an alcohol detox protocol. We are monitoring his vital signs. His most recent blood pressure was 141/92 which is on the high side but not terribly high. Temperature and pulse look good. If he is going to go into withdrawal it probably will be within the next 24 hours or so. 3. I started him on fluoxetine 20 mg daily to try to help with his mood. I reviewed the uses, side effects, and time course and the patient gave informed consent. 4. She will take part in our therapeutic milieu, attend groups and activities, maintain good hygiene, and try not to isolate. 5. We will try to set up some type of family or meeting with his friend to try to come up with a good social support plan. Will also try to set him up with outpatient medication management, therapy, and outpatient alcohol treatment. 6. Patient was worried about possible HIV from a sexual encounter and so I wrote for an HIV test. It is still pending. Suicide Risk Level Suicide Risk Level: Moderate (q15 min suicide checks) Risk Factors Assessment Do You Have Access To A Gun?: No Protective Factors Assessment Employed: Yes ([employer]) Interval History Identifying Information AIMEE MARTINI is a 23-year-old M who currently lives in [place]. He has a history of heavy alcohol use and depression. He was admitted on 09/09/23 15:13 voluntarily due to recent suicidal ideation. Chief Complaint "still fine I guess" Review of Systems Sleep Information Total Hours of Sleep: 5.5 Sleep Comments: Vistaril PRN Meal Information Percent Meal Consumed - Breakfast: 90 Percent Meal Consumed - Lunch: 30 Percent Meal Consumed - Dinner: 90 Subjective Subjective Patient was seen & assessed and interval progress reviewed with nursing and social work. Attending groups. Denies medication related side effects. The patient is having a meeting today with his roommate for support. He spoke of his grandfather playing the accordion which he now owns but otherwise doesn't elaborate much on family/other stressors. Physical Exam Psychiatric Orientation: alert and oriented x 3 Apperance: appropriately dressed and appropriately groomed Eye Contact: good eye contact Motor Behavior: no abnormal motor movements Speech: normal rate/rhythm/volume of speech Affect: euthymic affect Mood: + depressed mood Thought Process: goal directed thought process Thought Content: reality based without delusions Suicidal Thoughts: denies suicidal thoughts Homicidal Thoughts: denies homicidal thoughts Hallucinations: no auditory hallucinations and no visual hallucinations Cognition: attention grossly intact and language grossly intact Estimated Intelligence: consistent with education level Insight: + limited insight Judgment: + limited judgement Vital Signs (Past 24 Hours) Last Vital Signs Temp 36.8 C 09/12/23 06:31 Pulse 53 L 09/12/23 06:31 Resp 16 09/12/23 06:31 BP 119/78 09/12/23 06:31 Pulse Ox 100 09/11/23 11:06 O2 Del Method Room Air 09/11/23 11:06 Results & Data (U) Current Inpatient Medications Current Inpatient Medications: Current Inpatient Medications Acetaminophen (Acetaminophen 325 Mg Tab) 650 mg PO Q4H PRN PRN Reason: Headache or Minor Fever Stop: 10/09/23 15:08 Al Hydrox/Mg Hydrox/Simethicone (Aluminum/Magnesium Susp 30 Ml Udc) 30 ml PO Q4H PRN PRN Reason: GI Upset Stop: 10/09/23 15:08 Bismuth Subsalicylate (Bismuth Subsalicylate Liqd 236 Ml) 15 ml PO PRN PRN PRN Reason: Loose Stool Stop: 10/09/23 15:08 Fluoxetine HCl (Fluoxetine Hcl 20 Mg Cap) 20 mg PO QAM CHRISTIAN Stop: 10/10/23 12:44 Last Admin: 09/12/23 08:57 Dose: 20 mg Hydroxyzine HCl (Hydroxyzine Hcl 25 Mg Tab) 50 mg PO HSZ PRN PRN Reason: Insomnia Stop: 10/09/23 15:08 Last Admin: 09/11/23 22:38 Dose: 50 mg Hydroxyzine HCl (Hydroxyzine Hcl 25 Mg Tab) 25 mg PO Q4H PRN PRN Reason: Anxiety Stop: 10/09/23 15:08 Magnesium Hydroxide (Magnesium Hydroxide Susp 30 Ml Udc) 30 ml PO DAILY PRN PRN Reason: Constipation Stop: 10/09/23 15:08 Sodium Chloride (Sodium Chloride 0.65% Na Soln 45 Ml ([place])) 1 - 2 sprays NA PRN PRN PRN Reason: Nasal Dryness/Congestion Stop: 10/09/23 15:08
--- NOTE | 2023-09-13 18:12 | Discharge Summary ---
Date of Service September 13, 2023 History of Present Illness As per Dr. Ortiz on adission: Jamar presented to our emergency room because he was really fed up with things going on in his life. He lives in a house in [place] with a roommate. He has been having some pretty severe financial issues with paying off student loans and paying his rent. This week he was given less hours of work and that put him in somewhat of a crisis. He wants to work up to 40 hours a week and is even considering getting a second job. He had a conversation with his father who lives in [place] and he decided to come in to get some help. He knows that his alcohol use is getting out of control. He drinks on a daily basis and drinks various types of alcohol. He says that he drinks somewhere between 6-12 drinks daily. He is not involved in any organized activities or denominational. He is involved in the "[place] scene" here in [facility]. He denies any legal issues. Sleep has been poor to the point that he has to drink in order to get to sleep every night. Appetite has been down. He says that it is difficult to eat when he is around food all the time but he manages to have at least 1 meal a day. Mood is described as "grim, apprehensive, and anxious." He has anhedonia. He says his energy is okay. He has difficulty with focus. He has guilt and some hopelessness. He denies homicidal thoughts. He said he "tried cutting" recently and occasionally will knock himself on the head but never to cause any major pain. He is not sure if he has not been involved in any type of trauma in his life. He denies any hallucinations or ideas of reference. Besides alcohol and the cocaine I mentioned above, he says he will sometimes use mushrooms or acid. His alcohol use is pretty heavy and at 1 time recently he was on naltrexone and Vivitrol for about 3 weeks but it made him feel miserable. He has tried cutting back on alcohol and is failed. He has been angered by people talking about his alcohol use. He feels bad about it. He will often use an eye dry pan feeder in the morning. He denies any history of any sami. Physical Exam Psychiatric See admission H&P and DOD assessment. Vital Signs (Past 24 Hours) Last Vital Signs Temp 36.6 C 09/13/23 10:24 Pulse 62 09/13/23 10:24 Resp 16 09/13/23 10:24 BP 119/78 09/13/23 10:24 Pulse Ox 100 09/13/23 10:24 O2 Del Method Room Air 09/11/23 11:06 Principal Diagnosis mood disorder Psychiatric Data See daily stay summary. In short, safety was maintained and the patient was cooperative with care. Medication changes included a trial of Prozac and they tolerated this well. A family session was held with his roommate to discuss how best to support sober living in the apartment and a safety plan was completed prior to discharge. Reviewed with patient that Dr. Ortiz provided a rather general dx of mood disorder given overlap with AUD and depressive symptoms and this can be refined during his follow up as he maintain sobriety. He seems to have ambivalence about total abstinence and rereviewed treatment recs, duration of treatment, and that SSRIs can have paradoxical effects with alcohol. discussed harm avoidance model while still encouraging sobriety. He has declined Revia during this stay. Day of Discharge Assessment Today the patient voices readiness for discharge. They note improvement in mood and deny thoughts to harm self or others. Thoughts remain organized and they are improved from admission. There is no evidence of psychosis. They agree to take mediations as prescribed and keep follow-up appointments. They are stable for discharge to outpatient level of care. Transition of Care Transition Of Care Record: was reviewed with the patient Advance Directives Advance Directives Information Provided: Yes Advance Directives: No Mental Health Advance Directive: No Advance Directives on File: No Living Will: No Power of Manager Title: No Advance Directives Reason:: Declines as Mental Health Visit. Suicide Risk Level Suicide Risk Level Comments: Suicide risk at discharge is deemed low as the patient is no longer requiring 24-hr monitoring, has a safety plan, and is free of suicidal ideation at discharge. Risk Factors Assessment Do You Have Access To A Gun?: No Protective Factors Assessment Employed: Yes ([employer]) Total Time Total Time Spent: Greater Than 30 Minutes (34 min) Discharge Data Lab Results 09/09/23 09/09/23 09/09/23 02:40 02:56 03:02 WBC 4.70 L RBC 5.52 Hgb 16.1 Hct 48.0 MCV 87.0 MCH 29.2 MCHC 33.5 RDW Std Deviation 40.2 RDW Coeff of [place] 12.8 Plt Count 327 MPV 10.3 Neutrophils % (Manual) 38 Lymphocytes % (Manual) 29 Monocytes % (Manual) 5 Eosinophils % (Manual) 2 Basophils % (Manual) 1 Neutrophils # (Manual) 1.79 Total Absolute Neuts 1.79 Lymphocytes # (Manual) 1.36 Total Abs Lymphocytes 2.54 Monocytes # (Manual) 0.24 Eosinophils # (Manual) 0.09 Basophils # (Manual) 0.05 Large Granular Lymphs 25 # Lrg Granular Lymphs 1.18 Sodium 143 Potassium 3.7 Chloride 106 Carbon Dioxide 23 Anion Gap 14 H BUN 8 Creatinine 0.81 Est Cr Clr Drug Dosing 128.3 Est GFR ( Amer) 144.2 Est GFR (Non-Af Amer) 124.4 BUN/Creatinine Ratio 9.9 L Glucose 97 Calcium 10.0 Magnesium 2.3 Total Bilirubin 0.4 AST 68 H ALT 76 H Alkaline Phosphatase 53 Total Protein 9.1 H Albumin 5.4 H Globulin 3.7 Albumin/Globulin Ratio 1.5 TSH 4.281 Urine Color Yellow Urine Appearance Clear Urine pH 7.0 Ur Specific [place] 1.006 Urine Protein Negative Urine Glucose (UA) Negative Urine Ketones Negative Urine Blood Negative Urine Nitrite Negative Urine Bilirubin Negative Urine Urobilinogen Negative Ur Leukocyte Esterase Negative Salicylates < 3.0 L Urine Opiates Screen Neg Ur Methadone, Qual Neg Acetaminophen < 3 L Urine Barbiturates Neg Ur Phencyclidine (PCP) Neg U Amphetamin/Meth Scrn Neg MDMA (Ecstasy) Screen Neg U Benzodiazepines Scrn Neg Ur Cocaine Metabolite Neg U Marijuana (THC) Screen Neg Ethyl Alcohol mg/dL 324.3 H HIV (1&2) Ag & Ab Conf SARS-CoV-2, RNA, NAAT NEGATIVE 09/10/23 12:39 WBC RBC Hgb Hct MCV MCH MCHC RDW Std Deviation RDW Coeff of [place] Plt Count MPV Neutrophils % (Manual) Lymphocytes % (Manual) Monocytes % (Manual) Eosinophils % (Manual) Basophils % (Manual) Neutrophils # (Manual) Total Absolute Neuts Lymphocytes # (Manual) Total Abs Lymphocytes Monocytes # (Manual) Eosinophils # (Manual) Basophils # (Manual) Large Granular Lymphs # Lrg Granular Lymphs Sodium Potassium Chloride Carbon Dioxide Anion Gap BUN Creatinine Est Cr Clr Drug Dosing Est GFR ( Amer) Est GFR (Non-Af Amer) BUN/Creatinine Ratio Glucose Calcium Magnesium Total Bilirubin AST ALT Alkaline Phosphatase Total Protein Albumin Globulin Albumin/Globulin Ratio TSH Urine Color Urine Appearance Urine pH Ur Specific [place] Urine Protein Urine Glucose (UA) Urine Ketones Urine Blood Urine Nitrite Urine Bilirubin Urine Urobilinogen Ur Leukocyte Esterase Salicylates Urine Opiates Screen Ur Methadone, Qual Acetaminophen Urine Barbiturates Ur Phencyclidine (PCP) U Amphetamin/Meth Scrn MDMA (Ecstasy) Screen U Benzodiazepines Scrn Ur Cocaine Metabolite U Marijuana (THC) Screen Ethyl Alcohol mg/dL HIV (1&2) Ag & Ab Conf NON-REACTIVE SARS-CoV-2, RNA, NAAT Hospital Course (1) Mood disorder: (2) Severe alcohol use disorder: Plan 09/12/23: continue medication trial, safety planning, [facility] referral on 09/13 when office reopens. 09/11/23: d/c AWSS protocol, d/c MNPR, patient declines a retrial of Naltrexone. Continue Prozac trial. note: The patient has problematic drinking. Brief intervention was offered and accepted. Intervention was greater than 5 min in length and included need to abstain from alcohol due to depressant effects and available treatment options. cardroom worker will also assist in anticipating barriers to sobriety and in problem-solving for solutions to those problems while arranging for referral to appropriate treatment. The patient is in action stage with regards to transtheoretical model of change. Also, reconsented for Prozac. Risks/benefits/alternatives reviewed re: antidepressants for the treatment of depression and/or anxiety. Discussion included but was not limited to FDA warnings re: suicidality in adolescents and young adults. 09/10/23 (as per Dr. Huggins) 1. We will have the patient on our unit for safety, further evaluation, and treatment. I encouraged him to go to groups and activities to help distract himself. 2. We have placed him on an alcohol detox protocol. We are monitoring his vital signs. His most recent blood pressure was 141/92 which is on the high side but not terribly high. Temperature and pulse look good. If he is going to go into withdrawal it probably will be within the next 24 hours or so. 3. I started him on fluoxetine 20 mg daily to try to help with his mood. I reviewed the uses, side effects, and time course and the patient gave informed consent. 4. She will take part in our therapeutic milieu, attend groups and activities, maintain good hygiene, and try not to isolate. 5. We will try to set up some type of family or meeting with his friend to try to come up with a good social support plan. Will also try to set him up with outpatient medication management, therapy, and outpatient alcohol treatment. 6. Patient was worried about possible HIV from a sexual encounter and so I wrote for an HIV test. It is still pending. Mental Health & Subst Abuse Tx Therapist Name of Therapist: [facility] Date of Therapist Appointment: 09/20/2023 Time of Therapist Appointment: 11am Therapy Appointment Comment: intake will be via telehealth Post Discharge Appointments Primary Care Physician Name Of Family Doctor/PCP: [facility] Date of Future Appointment with PCP: 10/05/2023 Time of Appointment with PCP: arrival time 2:10pm nurses visit, 2:40pm with provider Provider Appointment Comment: [address] [place], [facility] [address] Contact Information Discharge Discharge [address]: [address] [place] [address], [place] [address] Discharge Plan Discharge Items Patient Disposition: Home - Self-Care Reason For Visit: SUICIDAL IDEATION Discharge Diagnosis: mood disorder Activity: Resume your previous activity Non-emergency contact: Primary Care Provider and Therapist Call non-emergency contact if: you have any medication questions and your symptoms worsen Follow-up/Referrals: PCP,KATHLEEN [Primary Care Provider] - Diet: Regular Addtl Attending Provider Instructions: SPECIAL CARE INSTRUCTIONS: 1. Follow through with your scheduled aftercare appointments. If unable to keep an appointment, please call to reschedule. 2. Take your medication only as prescribed. Medication should not be changed or stopped without the approval of your doctor. In the event of worsening symptoms or concerns about side effects, contact your doctor immediately. 3. Utilize new healthy coping skills, anger management skills, and stress management skills learned during your hospitalization. Journal feelings and process them with a support person. Identify stressors or situations that may result in relapse, deterioration or inappropriate behaviors and develop a plan to deal with those issues. 4. If your coping skills are ineffective and you are in crisis, contact your outpatient providers for direction. If unable to reach your providers, please call the [facility] CRISIS LINE AT , go to the [facility] walk-in center at [address], [address], [place], or go to the closest Emergency Room. 5. Avoid alcohol and un-prescribed drugs. 6. You have been provided with the Mental Health Advance Directives Pamphlet for your review. 7. Your condition is stable for discharge to outpatient level of care, but recovery is an ongoing process. Ifthoughts to harm yourself or others return, follow the safety plan developed during your stay. Planning for a safe return home includes securing weapons. Our treatment team recommends weaponsbe removed from the home until your outpatient provider reassesses your progress. In rare cases where the items themselvescannot be removed, guns and ammunitionshould be secured separatelyand keys stored by a reliable personoutside of the home. If you were admitted on an involuntary commitment, the police or other legal authorities may be involved in this process. AFTERCARE APPOINTMENTS: * Please call your insurance company prior to your scheduled appointment to confirm your aftercare providers are covered. Take your insurance information to your appointments. WHO TO CALL AND WHEN: Medical Emergencies: For questions or emergencies related to your hospital stay, please contact the Inpatient Behavioral Health Unit at [phone]. A booster pump oiler is on-call 22/02 for the Behavioral Health Unit for emergencies At any time you feel your situation is an emergency, you may also call 911 immediately. Pending Studies at Discharge: No Stand-Alone Forms: My [facility], Smoking Cessation Medications and DC Order Prescriptions: New fluoxetine 20 mg Capsule 20 mg PO QAM Qty: 30 0RF Discharge Orders: Discharge Order (Routine); Ordered 09/13/23 Ordered By: Chloé Ibarra Admission Data Admit Date/Time: 09/09/23 15:13 Attending Provider: Chloé Ibarra Admit Provider: Don Ortiz Jr Primary Care Provider: PCP,NO Other Interventions: Discharge Summary Assessment (RN) Last Done: 09/13/23 10:24 PSY Interdisciplinary Discharge Planning Last Done: 09/13/23 11:50 Coding Level of Care Code 49837 D/C day mgmt > 30 min Diagnoses Mood disorder F39 Severe alcohol use disorder F10.20
== END 2023-09-13 15:05 | disposition home or self-care (01) | DRG 885 ==
LOC: ED 02:16 → SUATTDRO 15:13 → 3S 16:03